=== PATIENT | male | born 2000 | race Caucasian/White ===

== ENCOUNTER 2025-02-25 06:36 | Inpatient (IN) | payer MEDICAID, SELFPAY ==
--- OUTSIDE RECORDS SUMMARY | 2013-12-06 19:00 | XMS_ITS | Continuity of Care Document ---
Author Organization [facility] Address [address] [place] [address] Phone Care Team Providers Care [employer] Manager Name Role Phone Unavailable Unavailable Unavailable Advance Directives Directive Yes / No Effective Date File Name No Information Encounters Encounter Description Practice Location Reason(s) For Visit Diagnoses Date Provider Providers Copied on Encounter [facility], [address], [place], [address], [place] tel:[phone] [facility] No Information Dec-0 6201 4 No Information Referring Provider: MJ LEE J, [address] [place], [address]. tel:[phone] Family History Family Member Type Diagnosis Age At Onset No Information Payers Payer name Insurance type Covered republican ID Authoriza tistra(s) [place] [employer] [id number] Social History Type Description Quantity Date Captured Comments Sex Male Smoking Status No Information Chief Complaint And Reason For Visit No Information History Of Present Illness Encounter Date Complaint History Of Prese nt Illness No Information Instructions Date Instruction Additional Infor mation No Information Assessments Type Assessment Date No Information
--- OUTSIDE RECORDS SUMMARY | 2017-10-23 09:30 | XMS_ITS | Continuity of Care Document ---
Author Organization [facility] Address [address] [id number] [address] Phone Care Team Providers Care Byproducts Operator Name Role Phone Levon ABIGAIL Checo Unavailable [...] Diagnoses Date Provider Providers Copied on Encounter [facility], [id number]- [place], [place], [address], [place] tel:[phone] [facility] Encounter for dental exam and cleaning w/o abnormal findings b2 0- 8 Levon Kessler. [address] [place], [address], [place]. tel:[phone] Referring Provider: Checo Nicholson, [address] [place], [address]. tel:[phone] [facility], [id number]- [place], [place], [address], [place] tel:[phone] [facility] Encounter for dental exam and cleaning w/o abnormal findings b-0 6 8 Nura Lee. [address] [place], [address], [place]. tel:[phone] Referring Provider: Rosa Vance, [address] [place], [address]. tel:[phone] [facility], [address] [id number]- [place], [place], [address], [place] tel:[phone] [facility] Encounter for dental exam and cleaning w/o abnormal findings b0 1 8 Levon Kessler. [address] [place], [address], [place]. tel:[phone] Referring Provider: Checo Nicholson, [address] [place], [address]. tel:[phone] [facility], [id number]- [place], [address], [place] tel:[phone] [facility] Encounter for dental exam and cleaning w/o abnormal findings 8 Nura Lee. [address] [place], [address], [place]. tel:[phone] Referring Provider: Rosa Vance, [address] [place], [address]. tel:[phone] [facility], [address] [id number]- [place], [address], [place] tel:[phone] [facility] Encounter for dental exam and cleaning w/o abnormal findings 7 Yazmin Zendejas. [address] [place], [address], [place]. tel:[phone] Referring Provider: Aashish Arce, [address] [place], [address]. tel:[phone] [facility], [id number]- [place], [place], [address], [place] tel:[phone] [facility] Encounter for dental exam and cleaning w/o abnormal findings 6 Yazmin Zendejas. [address] [place], [address], [place]. tel:[phone] Referring Provider: Aashish Arce, [address] [place], [address]. tel:[phone] [facility], [address] [id number]- [place], [place], [address], [place] tel:[phone] [facility] No Information 6 No Information Referring Provider: Charlotte Vance, [address] [place], [address]. tel:[phone] [facility], [address] [id number]- [facility], [place], [place], [address], [place] tel:[phone] [facility] Encounter for dental exam and cleaning w/o abnormal findings 5 Levon Kessler. [address] [place], [address], [place]. tel:[phone] Referring Provider: Charlotte Vance, [address] [place], [address]. tel:[phone] [facility], [id number]- [place], [place], [address], [place] tel:[phone] [facility] No Information 5 No Information [facility], [address] [id number]- [place], [place], [address], [place] tel:[phone] [facility] Dental examination 5 No Information [facility], [address] [id number]- [place], [place], [address], [place] tel:[phone] [facility] Dental examination 4 No Information [facility], [address] [id number]- [place], [place], [address], [place] tel:[phone] [facility] Dental examination Nov- 4 No Information [facility], [address] [id number]- [place], [place], [address], [place] tel:[phone] [facility] Dental examination 3 No Information [facility], [address] [id number]- [facility], [place], [place], [address], [place] tel:[phone] [facility] Dental examination Nov- 3 Nura Fairbanks. [address] [place], [address], [place]. tel:[phone] Referring Provider: Magdi Davis, [address] [place], [address]. tel:[phone] [facility], [address] [id number]- [place], [place], [address], tel:[phone] [facility] Dental examination 3 Nura [address]. [address] [place], [address], [place]. tel:[phone] Referring Provider: Magdi Davis, [address] [place], [address]. tel:[phone] EST-PROB FOC/STR FORWARD [facility], [id number], [address], tel:[phone] Family Medicine F1 No Information 0200 7 No Information NEW-EXP PROB FOC/STR FORWARD [facility], [address] [id number], [address], tel:[phone] Family Medicine F1 No Information 0200 6 No Information Family History Family Member Type Diagnosis Age At Onset Father Problem (finding) Alive and well Mother Problem (finding) Alive and well Payers Payer name Insurance type Covered constitution party ID Katt zafar(s) D [employer] CI [id number] Social History Type Description Quantity Date Captured [...]
[2025-02-25] VITALS (51 sets, daily range): BP systolic 107–164; BP diastolic 61–106; PULSE 87–120; RESP 16–38; TEMP 36.1–37.4; O2SAT 92–100; BMI 25.9
[2025-02-25 06:53] LABS: Glucose Point of Care > 600 mg/dL (70-110)
[2025-02-25 07:11] LABS: Arterial Blood Gas Hematocrit 49.3 % (42-52); Base Excess ABG -27.6 mmol/L (-2.0-2.0); Blood Gas Allen Test Pos; Blood Gas Operator Identificat CAK; Blood Gas Sample Site Radial, left; Blood Gas Sample Type Arterial; Carboxyhemoglobin 1.2 %THgb (0.4-20.1); HGB O2 Sat 97.6 % (95-100); Ionized Calcium Level - ABG 1.3 mmol/L (1.1-1.4); Methemoglobin 0.2 % (0.4-1.5); Oxygen Device ROOM AIR; PO2 FiO2 Ratio Arterial Blood 742; Potassium Level - ABG 6.3 mmol/L (3.5-5.0); Total Hemoglobin 16.1 g/dL (14-18)
[2025-02-25 07:12] LABS: ABG PCO2 < 9.6 mmHg (35-45); ABG PH Result 6.98 (7.35-7.45)
--- NOTE | 2025-02-25 07:19 | ED_ITS ---
HPI - Recheck/Abnormal Lab/Rx 2 General: Chief Complaint: Recheck/Abnormal Lab/Rx Stated Complaint: N/V Time Seen by Provider: 02/25/25 06:47 History of Present Illness: 24-year-old man with a history of type 1 diabetes who presents emergency room with hyperglycemia, nausea and vomiting. He says he ran out of his insulin a few days ago. He says he has not slept in a couple days. He has been dry heaving. He is Kussmaul breathing on presentation. No focal abdominal pain. No chest pain. No altered mental status at this time. He is able to answer questions appropriately when he is not dry heaving. Review of Systems 2 Narrative: Constitutional symptoms: Negative except as documented in HPI. Skin symptoms: Negative except as documented in HPI. Eye symptoms: Negative except as documented in HPI. ENMT symptoms: Negative except as documented in HPI. Respiratory symptoms: Negative except as documented in HPI. Cardiovascular symptoms: Negative except as documented in HPI. Gastrointestinal symptoms: Negative except as documented in HPI. Genitourinary symptoms: Negative except as documented in HPI. Musculoskeletal symptoms: Negative except as documented in HPI. Neurologic symptoms: Negative except as documented in HPI. Psychiatric symptoms: Negative except as documented in HPI. Endocrine symptoms: Negative except as documented in HPI. Physical Exam 2 Narrative: EXAM NARRATIVE: General: Alert, appears in moderate distress. Skin: Warm, dry. Head: Normocephalic, atraumatic. Neck: Supple, trachea midline. Eye: Extraocular movements are intact. Ears, nose, mouth and throat: Extremely dry oral mucosa Cardiovascular: Regular, Normal peripheral perfusion. Respiratory: Lungs are clear to auscultation, respirations are non-labored, breath sounds are equal, Symmetrical chest wall expansion. Gastrointestinal: Soft, Nontender, Non distended, actively dry heaving. Musculoskeletal: Normal ROM, no deformity. Neurological: Alert and oriented, No focal neurological deficit observed. Psychiatric: Cooperative, appropriate mood & affect. Course 2 Vital Signs: Vital signs: Vital Signs Temperature 97.0 F L 02/25/25 07:35 Pulse Rate 115 H 02/25/25 08:05 Respiratory Rate 36 H 02/25/25 08:05 Blood Pressure 164/96 02/25/25 08:05 Pulse Oximetry 100 02/25/25 08:05 Oxygen Delivery Me thod Room Air 02/25/25 07:35 MDM - Recheck/Abnormal Lab/Rx Medical Decision Making Medical decision making: Differential diagnosis for the patient with hyperglycemia would include but not be limited to and would be based on the above HPI review of systems and physical exam: DKA. Dehydration. Renal failure. Concern for electrolyte abnormalities. Concern for underlying infection that might result in hyperglycemia. Medical non-compliance. Orders placed to evaluate differential diagnosis of the patient with hyperglycemia are based on the above differential, HPI and physical exam. AB.98/9.6/156 with a bicarb of 2. 2 A of bicarb were ordered at this time along with an insulin drip and an additional liter of fluids. Lab Review: Laboratory results were reviewed and interpreted by myself the emergency room physician. Leukocytosis with a white count of 31,000. No anemia. Patient does have renal failure with a BUN/creatinine of 29 and 1.7. No previous lab values but given his age this is likely acute renal insufficiency. Potassium is mildly elevated at 6.5. Sodium is low at 121 but this is secondary to high glucose. Of most concern is a bicarb of 4. Ketone positive. EKG: Time 8:26 AM. Rate 111. Sinus tachycardia, No ST-T changes, no ectopy, normal MD & QRS intervals, This was reviewed and interpreted by myself the ER physician at 8:30 AM Sodium Correction for Hyperglycemia from [employer] on 02/25/2025 All calculations should be rechecked by clinician prior to use RESULT SUMMARY: 134 mEq/L Corrected Sodium (Hanks, 1973) 140 mEq/L Corrected Sodium (Meryl, 1999) INPUTS: Sodium ?> 121 mEq/L Glucose ?> 891 mg/dL I reviewed the patient's medical record. Reexamination: Patient continues to have Kussmaul breathing. No altered mental status. Tachypneic. Chest x-ray: No acute process. No infiltrate. No pneumothorax. This was reviewed and interpreted by myself the emergency room physician. I also reviewed the radiology report. Repeat ABG: Slight improvement with a pH of 7.056 and a PCO2 of 14 with a bicarb of 4. Consultation: I spoke with Dr. Granados who is on-call for the hospitalist service who agrees to admission to the ICU. Assessment and plan: Diabetic ketoacidosis Acute renal failure Dehydration ?3 L normal saline. IV insulin drip. 2 Amps sodium bicarbonate. Has received a total of 16 mg of Zofran. -I discussed the patient with the hospitalist on-call who is admitting the patient. - Discussed findings and plan with patient. Answered any questions. - All laboratory values were reviewed and interpreted personally by myself, the ER physician - All imaging was reviewed and interpreted personally by myself, the ER physician. - Evaluation and treatment of this problem were appropriate in the emergency setting Critical care -I spent a total of >75 minutes of critical care time managing the patient, independent of any other practitioner. -The time involved in the performance of separately reportable procedures was not counted towards critical care time. Lab Data 02/25/25 07:10 02/25/25 07:10 Radiology Impressions Chest X-Ray 02/25/25 07:50 IMPRESSION: 1. Negative chest. Laboratory Results WBC 31.35 10^3/uL (3.29-11.43) H* 02/25/25 07:10 RBC 5.00 10^6/uL (3.85-5.65) 02/25/25 07:10 Hgb 15.60 g/dL (11.27-16.99) 02/25/25 07:10 Hct 46.9 % (37-53) 02/25/25 07:10 MCV 93.8 fl (82-101) 02/25/25 07:10 MCH 31.2 pg (27-33) 02/25/25 07:10 MCHC 33.3 g/dL (30-55) 02/25/25 07:10 RDW 12.8 % (12.1-15.1) 02/25/25 07:10 Plt Count 496 10^3/cmm (157-399) H 02/25/25 07:10 MPV 10.0 fL (7.4-10.4) 02/25/25 07:10 Neut % (Auto) 82.0 % 02/25/25 07:10 Lymph % (Auto) 9.4 % 02/25/25 07:10 [place] % (Auto) 5.5 % 02/25/25 07:10 Eos % (Auto) 0.0 % 02/25/25 07:10 Baso % (Auto) 0.4 % 02/25/25 07:10 Neut # (Auto) 25.70 10^3/uL (1.8-7.7) H 02/25/25 07:10 Lymph # (Auto) 3.0 10^3/uL (0.8-4.8) 02/25/25 07:10 [place] # (Auto) 1.7 10^3/uL (0.2-0.9) H 02/25/25 07:10 Eos # (Auto) 0.0 10^3/uL (0.0-0.8) 02/25/25 07:10 Baso # (Auto) 0.1 10^3/uL (0.0-0.1) 02/25/25 07:10 Nucleated RBC % (auto) 0 % 02/25/25 07:10 Nucleated RBCs # 0.0 /100WBC 02/25/25 07:10 Specimen Type Arterial 02/25/25 07:00 Sample Site Radial, left 02/25/25 07:00 ABG pH 6.98 (7.35-7.45) L* 02/25/25 07:00 ABG pCO2 < 9.6 mmHg (35-45) L* 02/25/25 07:00 ABG pO2 156.0 mmHg (80.0-100.0) H 02/25/25 07:00 ABG PO2/FiO2 Ratio 742 02/25/25 07:00 ABG HCO3 2.0 mmol/L (22-26) L 02/25/25 07:00 ABG O2 Saturation 99.0 02/25/25 07:00 ABG Base Excess -27.6 mmol/L (-2.0-2.0) L 02/25/25 07:00 Gerardo Test Pos 02/25/25 07:00 A-a O2 Gradient Not Reportable 02/25/25 07:00 Hematocrit 49.3 % (42-52) 02/25/25 07:00 Hgb O2 Saturation 97.6 % (95-100) 02/25/25 07:00 Carboxyhemoglobin 1.2 %THgb (0.4-20.1) 02/25/25 07:00 Methemoglobin 0.2 % (0.4-1.5) L 02/25/25 07:00 Total Hemoglobin 16.1 g/dL (14-18) 02/25/25 07:00 Sodium 122.0 mmol/L (131-143) L 02/25/25 07:00 Potassium 6.3 mmol/L (3.5-5.0) H 02/25/25 07:00 Glucose 862.0 mg/dL (70-115) H 02/25/25 07:00 Ionized Calcium 1.3 mmol/L (1.1-1.4) 02/25/25 07:00 O2 Delivery Device Room air 02/25/25 07:00 FiO2 21.0 % 02/25/25 07:00 Flavorings Compounder ID Cak 02/25/25 07:00 Sodium 121 mmol/L (136-145) L 02/25/25 07:10 Potassium 6.5 mmol/L (3.5-5.1) H* 02/25/25 07:10 Chloride 77 mmol/L (98-107) L 02/25/25 07:10 Carbon Dioxide 4 mmol/L (22-29) L* 02/25/25 07:10 Anion Gap 46.5 (5-19) H 02/25/25 07:10 BUN 29 mg/dL (6-20) H 02/25/25 07:10 Creatinine 1.7 mg/dL (0.7-1.2) H 02/25/25 07:10 GFR Calculation 49.4 mL/min (90-130) L 02/25/25 07:10 Glucose 891 mg/dL (65-115) H* 02/25/25 07:10 POC Glucose > 600 mg/dL (70-110) H* 02/25/25 06:46 Calculated Osmolality 302 mOsm/kg (285-295) H 02/25/25 07:10 Lactic Acid 5.4 mmol/L (0.5-2.2) H* 02/25/25 07:10 Calcium 9.4 mg/dL (8.5-10.5) 02/25/25 07:10 Total Bilirubin 0.4 mg/dL (0.15-1.2) 02/25/25 07:10 AST 26 U/L (0-40) 02/25/25 07:10 ALT 44 U/L (0-41) H 02/25/25 07:10 Alkaline Phosphatase 164 U/L (40-130) H 02/25/25 07:10 C-Reactive Protein 7.2 mg/L (0.0-4.9) H 02/25/25 07:10 Total Protein 7.9 g/dL (6.6-8.7) 02/25/25 07:10 Albumin 4.4 g/dL (3.5-5.2) 02/25/25 07:10 Globulin 3.5 g/dL (1.3-4.6) 02/25/25 07:10 Lipase 26 U/L (13-60) 02/25/25 07:10 Serum Ketones Positive (Negative) H 02/25/25 07:10 All radiology interpretation(s) finalized by discharge Discharge Plan Discharge Patient Disposition: Admitted As Inpatient Admit Provider: Carlos Granados Clinical Impression: Diabetic ketoacidosis, Acute renal failure, Dehydration Condition: Stable Coding Level of Care Code ED Knit Goods Washer for Kimberlee Monsalve
[2025-02-25 07:20] LABS: Basophils # 0.1 10^3/uL (0.0-0.1); Basophils % 0.4 %; Hematocrit 46.9 % (37-53); Lymphocytes % 9.4 %; Mean Corpuscular HGB Conc 33.3 g/dL (30-55); Mean Corpuscular Hemoglobin 31.2 pg (27-33); Mean Corpuscular Volume 93.8 fl (82-101); Monocytes # 1.7 10^3/uL (0.2-0.9); Monocytes % 5.5 %; Nucleated Red Blood Cells % 0 %; Platelet Count 496 10^3/cmm (157-399); Red Cell Distribution Width 12.8 % (12.1-15.1)
[2025-02-25 07:25] LABS: White Blood Count 31.35 10^3/uL (3.29-11.43)
--- NOTE | 2025-02-25 07:27 | ECG_ITS ---
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 Measurements Intervals [place] Rate: 111 P: 42 SD: 96 QRS: -26 QRSD: 94 T: 60 QT: 319 QTc: 434 Interpretive Statements SINUS TACHYCARDIA WITH SHORT SD INTERVAL BORDERLINE LEFT AXIS DEVIATION [QRS AXIS < -20] No previous ECG available for comparison Electronically Signed On 03-05-2025 09:28:43 CDT by Margarito Vogel M.D. [email or web address]"
[2025-02-25] MEDS: sodium chloride 0.9% 1,000 ML 999 ML IV ×3 (07:29→08:06)
[2025-02-25] MEDS: sodium bicarbonate 8.4% 1 mEq/mL 50mL Syr 100 MEQ IVP (07:29)
[2025-02-25] MEDS: ondansetron 2 mg/ML SDV 2 mL 8 MG IVP ×2 (07:29→08:22)
[2025-02-25 07:36] LABS: Alanine Aminotransferase 44 U/L (0-41); Albumin Level 4.4 g/dL (3.5-5.2); Alkaline Phosphatase 164 U/L (40-130); Anion Gap 46.5 (5-19); Aspartate Amino Transferase 26 U/L (0-40); Blood Urea Nitrogen 29 mg/dL (6-20); C Reactive Protein 7.2 mg/L (0.0-4.9); Calcium 9.4 mg/dL (8.5-10.5); Chloride 77 mmol/L (98-107); Globulin 3.5 g/dL (1.3-4.6); Glomerular Filtration Rate 49.4 mL/min (90-130); Lipase 26 U/L (13-60); Sodium 121 mmol/L (136-145); Total Bilirubin 0.4 mg/dL (0.15-1.2); Total Protein 7.9 g/dL (6.6-8.7)
[2025-02-25 07:38] LABS: Ketone (Acetest) Serum Positive (Negative)
[2025-02-25 07:42] LABS: Carbon Dioxide 4 mmol/L (22-29); Lactic Sepsis W/Reflex 5.4 mmol/L (0.5-2.2); Potassium 6.5 mmol/L (3.5-5.1)
[2025-02-25 07:45] LABS: Osmolality Calculated 302 mOsm/kg (285-295)
[2025-02-25] MEDS: INSULIN REGULAR IN 0.9 % NACL 100 UNIT/100 ML BAG 7.5 UNIT IV (07:48)
--- NOTE | 2025-02-25 07:50 | XR_ITS ---
WS: [id number] Exam: XR chest 1V portable [id number] Date/Time of Exam: 02/25/2025 7:50 AM Reason For Exam: dka No previous exams. Lungs are fully inflated and clear. Heart size is normal. No pleural effusions. The mediastinum and bony thorax are intact. Several old RIGHT rib fractures. XR/XR chest 1V portable [id number] IMPRESSION: 1. Negative chest.
[2025-02-25 07:53] LABS: Glucose 891 mg/dL (65-115)
[2025-02-25 08:15] LABS: Glucose Point of Care > 600 mg/dL (70-110)
[2025-02-25] MEDS: acetaminophen 1,000 MG/100 ML PIGGYBACK 400 MG IV (08:22)
[2025-02-25 08:56] LABS: Alveolar-Arterial Oxygen Gradi 2.1 mmHg (5-10); Arterial Blood Gas Hematocrit 46.5 % (42-52); Base Excess ABG -24.4 mmol/L (-2.0-2.0); Blood Gas Allen Test Pos; Blood Gas Operator Identificat MONRO; Blood Gas Sample Site Radial, right; Blood Gas Sample Type Arterial; Carboxyhemoglobin 1.2 %THgb (0.4-20.1); HGB O2 Sat 95.7 % (95-100); Ionized Calcium Level - ABG 1.2 mmol/L (1.1-1.4); Methemoglobin 1.3 % (0.4-1.5); Oxygen Device ROOM AIR; Oxygen Saturation ABG 98.2; PO2 FiO2 Ratio Arterial Blood 538; Potassium Level - ABG 4.4 mmol/L (3.5-5.0); Total Hemoglobin 15.2 g/dL (14-18)
[2025-02-25 08:57] LABS: ABG PCO2 14.2 mmHg (35-45); ABG PH Result 7.06 (7.35-7.45)
[2025-02-25 09:06] LABS: Reflex Lactate Order REFLEX LACTIC ORDERD
[2025-02-25 09:09] LABS: Glucose Point of Care > 600 mg/dL (70-110)
--- NOTE | 2025-02-25 09:24 | P.HP_ITS ---
Providers/Chief Complaint 2 Admitting Physician: Carlos Granados Chief Complaint: N/V History of Present Illness Tim Das is a 24 year old male Review of Systems 2 Const: Reports: change in appetite and malaise; Denies: fever(s), chills or body aches Eyes: Reports: blurry vision ENMT: Denies: throat pain Card: Denies: chest pain, edema, pre-syncope or dyspnea on exertion Resp: Reports: other (Tachypnea); Denies: dyspnea, productive cough, change in phlegm color or hemoptysis GI: Reports: nausea and other (Dry heaving); Denies: abdominal pain, diarrhea, constipation, hematochezia or melena : Denies: flank pain, difficulty urinating, urinary frequency or hematuria Musc: Denies: back pain, joint swelling or joint redness Skin/Breast: Denies: rash or new lesions Neuro: Denies: headache(s) or confusion Medications/Allergies Home Medications ?Medication ?Instructions ?Recorded ?Confirmed ?Last Taken ?Type ibuprofen 200 mg tablet (Advil) 800 mg PO Q6H PRN Feve r Or Pain 02/25/25 02/25/25 02/22/25 History insulin aspart U-100 100 unit/mL 20 unit SUBCUT BEDTIM E 02/25/25 02/25/25 02/23/25 History subcutaneous solution insulin glargine 100 unit/mL See Rx Instructions .Rout e .COMPLEX 02/25/25 02/25/25 02/23/25 History subcutaneous solution PFSH Acute 2 PFSH: Medical History Diabetes type 1 Surgical History History of appendectomy Social History Smoking and tobacco/nicotine status: current every day tobacco/nicotine user Alcohol intake: never Substance/Drug Use: never Vitals/I&O/Wt Last Vital Signs Temp 97.0 F L 02/25/25 07:35 Pulse 115 H 02/25/25 08:05 Resp 36 H 02/25/25 08:05 BP 164/96 02/25/25 08:05 Pulse Ox 100 02/25/25 08:05 O2 Del Method Room Air 02/25/25 07:35 Weight last 48 hrs Weight 74.843 kg Physical Exam 2 Const: COMMON NORMALS: patient oriented x3 and alert GENERAL APPEARANCE: c ooperative ORIENTATION/CONSCIOUSNESS: Yes awake HENMT: OTHER: Dry MM Neck/C-Spine: COMMON NORMALS: no JVD Resp: COMMON NORMALS: clear to auscultation bilaterally EFFORT & INSPECTION: Yes tachypneic AUSCULTATION: clear to auscultation bilaterally Cardio: COMMON NORMALS: no JVD, regular rhythm, S1 normal heart sound present, S2 normal heart sound present and No murmurs present (Cardio) RHYTHM: regular rhythm HEART SOUNDS: S1 normal heart sound present and S2 normal heart sound present GI: COMMON NORMALS: Normal to inspection, nondistended, normoactive bowel sounds present, Soft to palpation and non-tender PALPATION: Yes Soft to palpation Extremity: COMMON NORMALS: no joint enlargement and no pedal edema Neuro: COMMON NORMALS: patient oriented x3 and moves all extremities S ENSORIUM/ORIENTATION: Yes alert Skin: COMMON NORMALS: no rashes or lesions noted GENERAL SKIN EXAM: no rashes or lesions noted Data 02/25/25 07:10 02/25/25 07:10 Micro: Microbiology 02/25/25 07:57 Blood Culture - Preliminary Blood SPECIMEN COLLECTED A&P Assessment and plan (1) Diabetic ketoacidosis: Ran out of insulin several days ago. Normally takes 20 units long acting and short acting SSI three times daily up to 80 units total. Has had DKA in the past. In the ED with dehydration, tachycardic, tachypnea, metabolic acidosis, reviewed vitals, CBC, ABG, CMP, lipase, serum ketones, chest x-ray, EKG, interpretation sinus tachycardia, ED provider note, discussed with ED provider. He received fluid boluses, started on insulin drip. Monitor POC glucose, monitor for risk of hypoglycemia, worsening hyperglycemia, acidosis, dehydration, fluid overload. Continue insulin drip, reassess chemistry, continue IV hydration with normal saline 250 mL/h. Monitor telemetry with risk arrhythmia. Zofran as needed for nausea. PPI prophylaxis with Protonix. DVT prophylaxis with Lovenox. As per discussion with him n.p.o. for now, sips chips and meds, he does state he is thirsty and wants to drink water. Discussed with him precautions. He will let us know once he is feeling better to advance to clear liquids. (2) Diabetes type 1: Has run out of insulin. Normally takes about 20 units of Basaglar and short acting insulin through the day. He had moved down here from [place]. Will need refill on insulin at discharge. Will need to reestablish with a primary provider and may be able to follow-up with endocrinology in [facility] as well which she states he will be trying to. (3) Dehydration: IV hydration as above. (4) WILLIAM (acute kidney injury): Reviewed chemistry, noted BUN 29, creatinine 1.7. Discussed with him. Potassium was 6.5 but with hyperglycemia, metabolic anion gap acidosis. Dehydrated. Possible prerenal WILLIAM, although he states that he has had issues with his renal function in the past and there may be a component of CKD. Monitor intake and output. Follow-up chemistry. Plan Headache: Received Tylenol. States in the past has been given tramadol. Would avoid NSAIDs due to WILLIAM versus WILLIAM on CKD. Without nuchal rigidity. Photosensitivity. Afebrile. Leukocytosis: With hemoconcentration, dehydration, without evidence of active infection at this time. DKA suspected triggered due to running out of insulin as he states has happened in the past. Reviewed chest x-ray. He denies other symptoms of infection on review of systems. Smoking addiction: Discussed smoke cessation with him for 3 and half minutes, he has been trying to quit. Has been cutting down. He is agreeable for nicotine replacement while in the hospital. Requested nicotine patch, nicotine lozenges. In case he could not make his own decisions he names Huong Moraes as a surrogate decision-maker. PDMP PDMP Reviewed: Not Reviewed Attestations 2 Medical Necessity Statement*: Admission over 2 midnights anticipated for assessment management of DKA, with WILLIAM, dehydration. Coding Level of Care Code Critical Care >/= 30 minutes Critical care time (in minutes): 40 The high probability of a clinically significant, sudden or life threatening deterioration, as referenced in this documentation, required my full and direct attention, intervention and personal management. The critical care time shown is in addition to time spent performing any reported separately billable procedures and includes the following: [x] Data and vital sign review and interpretation [x ] Patient assessment, examination and intervention [x] Medication orders and management [x] Patient/Family updates as able [x] Care Coordination and Documentation. Diagnoses Diabetic ketoacidosis E11.10 Diabetes type 1 E10.9 Dehydration E86.0 WILLIAM (acute kidney injury) N17.9
--- NOTE | 2025-02-25 09:34 | PC.NURSE ---
Notified Dr. Granados of patient's 0900 blood sugar reading of HI , let him know we would be giving a bolus of insulin and increasing his insulin drip.
--- NOTE | 2025-02-25 09:36 | PC.NURSE ---
0900 blood sugar check HI . Per protocol gave a bolus of 3.75 units. Increased insulin drip to 16.5 u/hr. 2 nurse verification done by myself and Ema Parada RN of insulin bolus and drip change.
[2025-02-25 10:37] LABS: Glucose Point of Care 412 mg/dL (70-110)
[2025-02-25] MEDS: TRAMadol 50 mg Tablet PO ×2 (10:47→20:31)
[2025-02-25] MEDS: nicotine 14 mg Patch 1 PATCH TRANSDERMA (10:47)
[2025-02-25 11:17] LABS: Lactic Acid level (Lactate) 4.9 mmol/L (0.5-2.2)
[2025-02-25 11:42] LABS: Glucose Point of Care 315 mg/dL (70-110)
[2025-02-25] MEDS: sodium chloride 0.9% 250 ML IV (12:32)
[2025-02-25 12:35] LABS: Glucose Point of Care 200 mg/dL (70-110)
[2025-02-25 13:27] LABS: Glucose Point of Care 139 mg/dL (70-110)
[2025-02-25] MEDS: dextrose 5%-sod chloride 0.45% 1,000 ML 250 ML IV ×3 (13:46→22:58)
[2025-02-25] MEDS: pantoprazole 40 mg SDV IVP (14:22)
[2025-02-25] MEDS: enoxaparin 40 mg/0.4 mL Syringe SUBCUT (14:22)
[2025-02-25 14:30] LABS: Glucose Point of Care 197 mg/dL (70-110)
[2025-02-25 14:38] LABS: Bilirubin Urine Negative (Negative); Blood Urine 2+ (Negative); Glucose Urine UA 2+ (Normal); Ketones Urine 4+ (Negative); Leukocyte Esterase Urine Negative (Negative); Nitrate Urine Negative (Negative); Protein Urine 2+ (Negative); Specific Gravity, Urine 1.029 (1.005-1.030); Urine Appearance Clear (CLEAR); Urine Color Yellow (Yellow)
[2025-02-25 14:43] LABS: Bacteria Urine None Seen /hpf; RBC Urine 0-2 /hpf (0-2); Squamous Epithelial Cell Urine 0-5 /hpf (0-5); WBC Urine 0-5 /hpf (0-5)
--- NOTE | 2025-02-25 14:44 | CT_ITS ---
WS: [id number] CT HEAD NONCONTRAST HISTORY: severe headache TECHNIQUE: Contiguous axial imaging performed through the brain. Bone and soft tissue windows. Sagittal and coronal reformats reviewed. All CT scans at [facility] use at least one of these dose optimization techniques: automated exposure control; mA and/or kV adjustment per patient size (includes targeted exams where dose is matched to clinical indication); or iterative reconstruction. DLP: 2210.18 mGy.cm COMPARISON: None available. No acute intracranial hemorrhage, midline shift or mass effect. No atrophy or prior infarcts or herniation. Ventricles: Normal size with no hydrocephalus. Paranasal sinuses: As visualized are clear. Mastoid air cells: Well pneumatized. Calvarium and scalp: Skull is intact with no soft tissue edema or swelling. CT/CT head wo con* [id number] IMPRESSION: Negative head CT.
[2025-02-25 14:45] LABS: Anion Gap 26.6 (5-19); Blood Urea Nitrogen 22 mg/dL (6-20); Calcium 8.6 mg/dL (8.5-10.5); Carbon Dioxide 12 mmol/L (22-29); Chloride 103 mmol/L (98-107); Creatinine Clr Calc Pharmacy 107.7689; Glomerular Filtration Rate 81.6 mL/min (90-130); Glucose 183 mg/dL (65-115); Osmolality Calculated 292 mOsm/kg (285-295); Potassium 4.6 mmol/L (3.5-5.1); Sodium 137 mmol/L (136-145)
[2025-02-25 14:46] LABS: Amphetamines Screen Urine Negative (Negative); Barbiturates Screen Urine Negative (Negative); Benzodiazepines Screen Urine Negative (Negative); Cocaine Screen Urine Negative (Negative); Opiate Screen Urine Negative (Negative); PCP Screen Urine Negative (Negative); THC Screen Urine Positive (Negative)
[2025-02-25] MEDS: INSULIN REGULAR IN 0.9 % NACL 100 UNIT/100 ML BAG IV (14:50)
--- NOTE | 2025-02-25 14:57 | PC.NURSE ---
Patient is reporting headache at 10/10 pain. One of the worst headaches he has ever had. Patient's face was really flushed. Because of the drop in blood sugar from the ER DR. Granados was contacted. He ordered to get a head CT w/o contrast stat.
[2025-02-25 15:17] LABS: Glucose Point of Care 253 mg/dL (70-110)
--- NOTE | 2025-02-25 15:19 | PC.NURSE ---
Patient wanted his wallet to be sent home with their family member Huong Moraes. Wallet was given to Huong Moraes to take home.
[2025-02-25] MEDS: ondansetron 2 mg/ML SDV 2 mL 4 MG IVP (15:24)
[2025-02-25] MEDS: acetaminophen 325 mg Tablet 650 MG PO ×2 (15:29→21:48)
[2025-02-25 16:18] LABS: Glucose Point of Care 305 mg/dL (70-110)
[2025-02-25 17:09] LABS: Glucose Point of Care 259 mg/dL (70-110)
[2025-02-25 18:11] LABS: Glucose Point of Care 220 mg/dL (70-110)
[2025-02-25 18:31] LABS: Anion Gap 23.4 (5-19); Blood Urea Nitrogen 18 mg/dL (6-20); Calcium 8.5 mg/dL (8.5-10.5); Carbon Dioxide 12 mmol/L (22-29); Chloride 104 mmol/L (98-107); Creatinine Clr Calc Pharmacy 107.7689; Glomerular Filtration Rate 81.6 mL/min (90-130); Glucose 200 mg/dL (65-115); Osmolality Calculated 288 mOsm/kg (285-295); Potassium 4.4 mmol/L (3.5-5.1); Sodium 135 mmol/L (136-145)
[2025-02-25] MEDS: morphine 4 mg/mL SDV 1 mL 2 MG IVP (19:12)
[2025-02-25 19:13] LABS: Glucose Point of Care 256 mg/dL (70-110)
[2025-02-25 20:10] LABS: Glucose Point of Care 212 mg/dL (70-110)
[2025-02-25 21:28] LABS: Glucose Point of Care 185 mg/dL (70-110)
[2025-02-25] MEDS: LORazepam 1 mg Tablet PO (21:45)
[2025-02-25 22:05] LABS: Glucose Point of Care 253 mg/dL (70-110)
[2025-02-25 23:04] LABS: Glucose Point of Care 291 mg/dL (70-110)
[2025-02-26] VITALS (27 sets, daily range): BP systolic 121–160; BP diastolic 77–113; PULSE 72–101; RESP 15–39; TEMP 36.7–37.3; O2SAT 96–100
[2025-02-26 00:11] LABS: Glucose Point of Care 251 mg/dL (70-110)
[2025-02-26 01:19] LABS: Glucose Point of Care 205 mg/dL (70-110)
[2025-02-26 02:13] LABS: Glucose Point of Care 201 mg/dL (70-110)
[2025-02-26 03:12] LABS: Glucose Point of Care 209 mg/dL (70-110)
[2025-02-26] MEDS: dextrose 5%-sod chloride 0.45% 1,000 ML 250 ML IV ×4 (03:13→23:31)
[2025-02-26 04:05] LABS: Alanine Aminotransferase 29 U/L (0-41); Albumin Level 3.3 g/dL (3.5-5.2); Alkaline Phosphatase 98 U/L (40-130); Aspartate Amino Transferase 23 U/L (0-40); Blood Urea Nitrogen 11 mg/dL (6-20); Calcium 8.6 mg/dL (8.5-10.5); Carbon Dioxide 17 mmol/L (22-29); Chloride 103 mmol/L (98-107); Globulin 2.5 g/dL (1.3-4.6); Glucose 188 mg/dL (65-115); Osmolality Calculated 280 mOsm/kg (285-295); Sodium 133 mmol/L (136-145); Total Bilirubin 0.5 mg/dL (0.15-1.2); Total Protein 5.8 g/dL (6.6-8.7)
[2025-02-26 04:06] LABS: Phosphorus 0.7 mg/dL (2.5-4.5)
[2025-02-26 04:08] LABS: Glucose Point of Care 200 mg/dL (70-110)
[2025-02-26] MEDS: morphine 4 mg/mL SDV 1 mL 2 MG IVP ×3 (04:26→21:12)
[2025-02-26] MEDS: ondansetron 2 mg/ML SDV 2 mL 4 MG IVP (04:27)
[2025-02-26] MEDS: potassium phosphate (mEq K) 40 MEQ in sodium chloride 0.9% (100 ml) 100 ML 27.25 MEQ IV (04:31)
[2025-02-26 05:07] LABS: Glucose Point of Care 255 mg/dL (70-110)
[2025-02-26 05:23] LABS: Basophils % 0.1 %; Eosinophils % 0.1 %; Hematocrit 36.1 % (37-53); Lymphocytes # 1.7 10^3/uL (0.8-4.8); Lymphocytes % 11.5 %; Mean Corpuscular HGB Conc 35.5 g/dL (30-55); Mean Corpuscular Hemoglobin 30.8 pg (27-33); Mean Corpuscular Volume 86.8 fl (82-101); Mean Platelet Volume 9.3 fL (7.4-10.4); Monocytes # 1.1 10^3/uL (0.2-0.9); Monocytes % 7.5 %; Neutrophils # 11.82 10^3/uL (1.8-7.7); Neutrophils % 80.3 %; Nucleated Red Blood Cells % 0 %; Platelet Count 232 10^3/cmm (157-399); Red Blood Count 4.16 10^6/uL (3.85-5.65); Red Cell Distribution Width 12.8 % (12.1-15.1); White Blood Count 14.71 10^3/uL (3.29-11.43)
[2025-02-26 06:05] LABS: Glucose Point of Care 272 mg/dL (70-110)
[2025-02-26] MEDS: TRAMadol 50 mg Tablet PO ×3 (07:12→22:36)
[2025-02-26 07:20] LABS: Glucose Point of Care 260 mg/dL (70-110)
[2025-02-26] MEDS: nicotine 14 mg Patch 1 PATCH TRANSDERMA (08:14)
[2025-02-26 08:30] LABS: Glucose Point of Care 178 mg/dL (70-110)
[2025-02-26 09:06] LABS: Anion Gap 19.1 (5-19); Blood Urea Nitrogen 9 mg/dL (6-20); Calcium 8.7 mg/dL (8.5-10.5); Carbon Dioxide 17 mmol/L (22-29); Chloride 104 mmol/L (98-107); Creatinine Clr Calc Pharmacy 132.0179; Glomerular Filtration Rate 102.8 mL/min (90-130); Glucose 181 mg/dL (65-115); Osmolality Calculated 285 mOsm/kg (285-295); Potassium 4.1 mmol/L (3.5-5.1); Sodium 136 mmol/L (136-145)
[2025-02-26] MEDS: acetaminophen 325 mg Tablet 650 MG PO ×2 (09:07→17:41)
[2025-02-26 09:10] LABS: Glucose Point of Care 194 mg/dL (70-110)
[2025-02-26 10:01] LABS: Glucose Point of Care 121 mg/dL (70-110)
--- NOTE | 2025-02-26 10:10 | P.PN_ITS ---
Subjective 2 Subjective: He feels he is improving. Headache is doing better. He would like to trial to advance to clear liquids. Vitals/I&O/Wt Last Vital Signs Temp 98.0 F 02/26/25 07:00 Pulse 88 02/26/25 09:00 Resp 19 H 02/26/25 09:00 BP 132/97 02/26/25 09:00 Pulse Ox 100 02/26/25 09:00 O2 Del Method Room Air 02/26/25 09:00 02/25/25 02/26/25 02/26/25 22:59 06:59 14:59 Intake Total 2127.366 / 5570.233 1022.217 / 6592.559 256.6002 / 122.2739 Output Total 900 / 900 900 / 900 Balance 2127.366 / 5570.233 122.217 / 5692.450 -777.7261 / -777.7261 Weight last 48 hrs Weight 79.923 kg Weight 79.5 kg Weight 74.843 kg Physical Exam 2 Const: COMMON NORMALS: patient oriented x3 GENERAL APPEARANCE: cooperative OTHER: Wakes up to voice and shoulder touch. HENMT: OTHER: Dry MM Neck/C-Spine: COMMON NORMALS: no JVD Resp: COMMON NORMALS: clear to auscultation bilaterally EFFORT & INSPECTION: Yes tachypneic AUSCULTATION: clear to auscultation bilaterally Cardio: COMMON NORMALS: no JVD, regular rhythm, S1 normal heart sound present, S2 normal heart sound present and No murmurs present (Cardio) RHYTHM: regular rhythm HEART SOUNDS: S1 normal heart sound present and S2 normal heart sound present GI: COMMON NORMALS: Normal to inspection, nondistended, normoactive bowel sounds present, Soft to palpation and non-tender PALPATION: Yes Soft to palpation Extremity: COMMON NORMALS: no joint enlargement and no pedal edema Neuro: COMMON NORMALS: patient oriented x3 and moves all extremities Skin: COMMON NORMALS: no rashes or lesions noted GENERAL SKIN EXAM: no rashes or lesions noted Data 02/26/25 04:55 02/26/25 08:43 Micro: Microbiology 02/25/25 07:57 Blood Culture - Preliminary Blood NEGATIVE TO DATE 02/25/25 10:50 Blood Culture - Preliminary Blood SPECIMEN COLLECTED A&P Assessment and plan (1) Diabetic ketoacidosis: Gradually improving. Glucose improving. Reviewed vitals, CBC, CMP, UA, UDS. Hypophosphatemia this morning for which received replacement per protocol. Anion gap improving, down to 17 this morning, bicarb 17. BUN, creatinine normal. Continue IV hydration, continue IV insulin drip. Monitor for risk of hypoglycemia, monitor for risk of fluid overload. He would like to trial some clear liquids, requested. Continue to reassess chemistry, Phos, mag. Discussed with nursing. Monitor telemetry with risk arrhythmia. Zofran as needed for nausea. PPI prophylaxis with Protonix. DVT prophylaxis with Lovenox. (2) Diabetes type 1: Has run out of insulin. Normally takes about 20 units of Basaglar and short acting insulin through the day. He had moved down here from [place]. Will need refill on insulin at discharge. Will need to reestablish with a primary provider and may be able to follow-up [facility] which she states he will be trying to. Discussed with vocational case manager. (3) Dehydration: IV hydration as above. (4) WILLIAM (acute kidney injury): Resolved with hydration. Likely prerenal. Reviewed BUN, creatinine, intake output. Electrolytes. Reassess chemistry Plan Headache: Plus slight worsening headache, CT of the head obtained, reviewed, unremarkable. Given morphine. Headache improving. Possible symptoms with glucose coming down in case of protracted hyperglycemia preadmission. States in the past has been given tramadol. Would avoid NSAIDs due to WILLIAM versus WILLIAM on CKD. Without nuchal rigidity. Photosensitivity. Afebrile. Leukocytosis: With hemoconcentration, dehydration, without evidence of active infection at this time. DKA suspected triggered due to running out of insulin as he states has happened in the past. Reviewed chest x-ray. He denies other symptoms of infection on review of systems. Smoking addiction: Continue to encourage cessation. PDMP PDMP Reviewed: Not Reviewed Attestations 2 Medical Necessity Statement*: Continue admission for assessment management of DKA. Coding Level of Care Code Critical Care >/= 30 minutes Critical care time (in minutes): 35 The high probability of a clinically significant, sudden or life threatening deterioration, as referenced in this documentation, required my full and direct attention, intervention and personal management. The critical care time shown is in addition to time spent performing any reported separately billable procedures and includes the following: [x] Data and vital sign review and interpretation [x ] Patient assessment, examination and intervention [x] Medication orders and management [x] Patient/Family updates as able [x] Care Coordination and Documentation. Diagnoses Diabetic ketoacidosis E11.10 Diabetes type 1 E10.9 Dehydration E86.0 WILLIAM (acute kidney injury) N17.9
[2025-02-26 11:04] LABS: Glucose Point of Care 184 mg/dL (70-110)
[2025-02-26 12:06] LABS: Glucose Point of Care 243 mg/dL (70-110)
[2025-02-26 12:51] LABS: Alanine Aminotransferase 25 U/L (0-41); Albumin Level 3.3 g/dL (3.5-5.2); Alkaline Phosphatase 101 U/L (40-130); Anion Gap 18.1 (5-19); Aspartate Amino Transferase 18 U/L (0-40); Blood Urea Nitrogen 9 mg/dL (6-20); Calcium 8.5 mg/dL (8.5-10.5); Carbon Dioxide 18 mmol/L (22-29); Chloride 102 mmol/L (98-107); Creatinine Clr Calc Pharmacy 148.5201; Globulin 2.3 g/dL (1.3-4.6); Glomerular Filtration Rate 117.8 mL/min (90-130); Glucose 243 mg/dL (65-115); Osmolality Calculated 285 mOsm/kg (285-295); Potassium 4.1 mmol/L (3.5-5.1); Sodium 134 mmol/L (136-145); Total Bilirubin 0.6 mg/dL (0.15-1.2); Total Protein 5.6 g/dL (6.6-8.7)
[2025-02-26 12:52] LABS: Phosphorus 1.1 mg/dL (2.5-4.5)
[2025-02-26 13:11] LABS: Glucose Point of Care 293 mg/dL (70-110)
[2025-02-26] MEDS: pantoprazole 40 mg SDV IVP (13:25)
[2025-02-26] MEDS: enoxaparin 40 mg/0.4 mL Syringe SUBCUT (13:25)
[2025-02-26 14:06] LABS: Glucose Point of Care 284 mg/dL (70-110)
[2025-02-26 15:10] LABS: Glucose Point of Care 303 mg/dL (70-110)
[2025-02-26 16:11] LABS: Glucose Point of Care 276 mg/dL (70-110)
[2025-02-26 17:08] LABS: Glucose Point of Care 356 mg/dL (70-110)
[2025-02-26] MEDS: LORazepam 1 mg Tablet PO (17:41)
[2025-02-26 18:06] LABS: Glucose Point of Care 355 mg/dL (70-110)
[2025-02-26 18:08] LABS: Anion Gap 17.9 (5-19); Blood Urea Nitrogen 8 mg/dL (6-20); Calcium 8.3 mg/dL (8.5-10.5); Carbon Dioxide 16 mmol/L (22-29); Chloride 101 mmol/L (98-107); Glomerular Filtration Rate 137.4 mL/min (90-130); Glucose 346 mg/dL (65-115); Osmolality Calculated 284 mOsm/kg (285-295); Potassium 3.9 mmol/L (3.5-5.1); Sodium 131 mmol/L (136-145)
[2025-02-26] MEDS: sodium chloride 0.9% 1,000 ML 250 ML IV (18:33)
[2025-02-26 19:14] LABS: Glucose Point of Care 320 mg/dL (70-110)
[2025-02-26 20:16] LABS: Glucose Point of Care 172 mg/dL (70-110)
[2025-02-26] MEDS: INSULIN REGULAR IN 0.9 % NACL 100 UNIT/100 ML BAG IV (20:35)
[2025-02-26 21:20] LABS: Glucose Point of Care 206 mg/dL (70-110)
[2025-02-26 22:08] LABS: Glucose Point of Care 156 mg/dL (70-110)
[2025-02-26 23:07] LABS: Glucose Point of Care 134 mg/dL (70-110)
[2025-02-26 23:29] LABS: Anion Gap 13.3 (5-19); Blood Urea Nitrogen 7 mg/dL (6-20); Calcium 8.3 mg/dL (8.5-10.5); Carbon Dioxide 20 mmol/L (22-29); Chloride 103 mmol/L (98-107); Glomerular Filtration Rate 137.4 mL/min (90-130); Glucose 130 mg/dL (65-115); Magnesium 1.9 mg/dL (1.7-2.3); Osmolality Calculated 276 mOsm/kg (285-295); Phosphorus 1.1 mg/dL (2.5-4.5); Potassium 3.3 mmol/L (3.5-5.1); Sodium 133 mmol/L (136-145)
[2025-02-26 23:56] LABS: Glucose Point of Care 195 mg/dL (70-110)
[2025-02-27] VITALS (24 sets, daily range): BP systolic 134–158; BP diastolic 86–117; PULSE 63–93; RESP 14–22; TEMP 36.8–37.3; O2SAT 94–100; BMI 27.3
[2025-02-27] MEDS: insulin glargine 100 units/1 mL 20 UNIT SUBCUT ×2 (00:19→20:54)
[2025-02-27] MEDS: MELATONIN 3 MG TABLET PO ×2 (00:19→20:52)
[2025-02-27] MEDS: potassium chloride ER 20 mEq Tablet 40 MEQ PO ×2 (00:22→04:23)
[2025-02-27 01:06] LABS: Glucose Point of Care 182 mg/dL (70-110)
[2025-02-27 02:06] LABS: Glucose Point of Care 211 mg/dL (70-110)
--- NOTE | 2025-02-27 02:30 | PC.NURSE ---
Melatonin: Patient requesting melatonin to help him sleep, Dr. Galvez gave verbal orders for it.
--- NOTE | 2025-02-27 02:30 | PC.NURSE ---
Transition: Patient's gap was 13.3, Dr Galvez gave verbal orders to transition off insulin gtt after administration of 20 units lantus and start carb consistent diet. Dr. Galvez also gave verbal orders to give PO K replacement, 40meq PO Q4H for 2 doses.
[2025-02-27 03:23] LABS: Glucose Point of Care 213 mg/dL (70-110)
[2025-02-27 03:55] LABS: Basophils % 0.2 %; Eosinophils # 0.1 10^3/uL (0.0-0.8); Eosinophils % 0.4 %; Lymphocytes # 2.9 10^3/uL (0.8-4.8); Lymphocytes % 25.3 %; Mean Corpuscular HGB Conc 35.1 g/dL (30-55); Mean Corpuscular Hemoglobin 31.1 pg (27-33); Mean Corpuscular Volume 88.5 fl (82-101); Mean Platelet Volume 9.5 fL (7.4-10.4); Monocytes # 0.8 10^3/uL (0.2-0.9); Monocytes % 7.3 %; Neutrophils # 7.51 10^3/uL (1.8-7.7); Neutrophils % 66.4 %; Nucleated Red Blood Cells % 0 %; Platelet Count 198 10^3/cmm (157-399); Red Blood Count 4.18 10^6/uL (3.85-5.65); Red Cell Distribution Width 12.8 % (12.1-15.1); White Blood Count 11.32 10^3/uL (3.29-11.43)
[2025-02-27 04:11] LABS: Alanine Aminotransferase 25 U/L (0-41); Albumin Level 3.2 g/dL (3.5-5.2); Alkaline Phosphatase 133 U/L (40-130); Anion Gap 15.9 (5-19); Aspartate Amino Transferase 20 U/L (0-40); Blood Urea Nitrogen 6 mg/dL (6-20); Calcium 8.5 mg/dL (8.5-10.5); Carbon Dioxide 19 mmol/L (22-29); Chloride 103 mmol/L (98-107); Globulin 2.5 g/dL (1.3-4.6); Glomerular Filtration Rate 137.4 mL/min (90-130); Glucose 202 mg/dL (65-115); Osmolality Calculated 281 mOsm/kg (285-295); Phosphorus 1.3 mg/dL (2.5-4.5); Potassium 3.9 mmol/L (3.5-5.1); Sodium 134 mmol/L (136-145); Total Bilirubin 0.5 mg/dL (0.15-1.2); Total Protein 5.7 g/dL (6.6-8.7)
[2025-02-27] MEDS: acetaminophen 325 mg Tablet 650 MG PO (04:28)
[2025-02-27 04:31] LABS: Glucose Point of Care 261 mg/dL (70-110)
--- NOTE | 2025-02-27 06:21 | ECG_ITS ---
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 Measurements Intervals [place] Rate: 70 P: 10 NE: 113 QRS: -5 QRSD: 95 T: 9 QT: 371 QTc: 401 Interpretive Statements SINUS RHYTHM WITH SINUS ARRHYTHMIA WITH SHORT NE INTERVAL Compared to ECG 02/25/2025 08:26:24 Sinus tachycardia no longer present Electronically Signed On 03-05-2025 09:23:01 CDT by Margarito Vogel M.D. [id number] [id number]
[2025-02-27] MEDS: morphine 4 mg/mL SDV 1 mL 2 MG IVP (06:27)
[2025-02-27 07:49] LABS: Glucose Point of Care 338 mg/dL (70-110)
[2025-02-27] MEDS: TRAMadol 50 mg Tablet PO ×2 (08:20→23:22)
[2025-02-27] MEDS: insulin lispro 100 unit/1 mL SUBCUT ×4 (08:20→20:53)
[2025-02-27] MEDS: nicotine 14 mg Patch 1 PATCH TRANSDERMA ×2 (08:21→22:31)
[2025-02-27] MEDS: sucralfate 1 gm Tablet PO ×3 (11:47→20:52)
[2025-02-27 12:07] LABS: Glucose Point of Care 250 mg/dL (70-110)
[2025-02-27 16:04] LABS: Glucose Point of Care 243 mg/dL (70-110)
[2025-02-27] MEDS: enoxaparin 40 mg/0.4 mL Syringe SUBCUT (16:16)
[2025-02-27] MEDS: pantoprazole 40 mg SDV IVP (16:16)
[2025-02-27 18:05] LABS: Glucose Point of Care 225 mg/dL (70-110)
--- NOTE | 2025-02-27 18:11 | ECG_ITS ---
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 Measurements Intervals [place] Rate: 67 P: 10 [place]: 124 QRS: -6 QRSD: 103 T: 6 QT: 373 QTc: 396 Interpretive Statements SINUS RHYTHM WITH OCCASIONAL VENTRICULAR PREMATURE COMPLEXES Compared to ECG 02/27/2025 06:20:53 Ventricular premature complex(es) now present Sinus arrhythmia no longer present Short [place] interval no longer present Electronically Signed On 03-05-2025 09:18:15 CDT by Margarito Vogel M.D. [id number]
--- NOTE | 2025-02-27 18:12 | XRR_ITS ---
PROCEDURE INFORMATION: Exam: XR Chest Exam date and time: 02/27/2025 6:15 PM Age: 24 years old Clinical indication: Other: Persistent bothersome heartburn sensation TECHNIQUE: Imaging protocol: Radiologic exam of the chest. Views: 1 view. COMPARISON: CR XR chest 1V portable [id number] 02/25/2025 8:11 AM FINDINGS: Lungs: Unremarkable. No consolidation. Pleural spaces: Unremarkable. No pleural effusion. No pneumothorax. Heart/Mediastinum: Unremarkable. No cardiomegaly. Bones/joints: Old healed right rib fractures again seen. XR/XR chest 1V portable [id number] IMPRESSION: No acute findings.
--- NOTE | 2025-02-27 18:13 | P.PN_ITS ---
Subjective 2 Subjective: Overall improving, headache resolved, however, has been having very bothersome heartburn preventing him from eating this morning. Vitals/I&O/Wt Last Vital Signs Temp 98.3 F 02/27/25 04:00 Pulse 63 02/27/25 17:00 Resp 14 02/27/25 14:00 BP 135/105 02/27/25 17:00 Pulse Ox 99 02/27/25 17:00 O2 Del Method Room Air 02/27/25 17:00 02/27/25 02/27/25 02/27/25 06:59 14:59 22:59 Intake Total 1747.202 / 5291.1759 Output Total 650 / 2050 550 / 550 Balance 1097.202 / 3241.1759 -550 / -550 Weight last 48 hrs Weight 84 kg Weight 79.923 kg Physical Exam 2 Const: COMMON NORMALS: patient oriented x3 and alert GENERAL APPEARANCE: c ooperative ORIENTATION/CONSCIOUSNESS: Yes awake Neck/C-Spine: COMMON NORMALS: no JVD Resp: COMMON NORMALS: clear to auscultation bilaterally EFFORT & INSPECTION: Yes tachypneic AUSCULTATION: clear to auscultation bilaterally Cardio: COMMON NORMALS: no JVD, regular rhythm, S1 normal heart sound present, S2 normal heart sound present and No murmurs present (Cardio) RHYTHM: regular rhythm HEART SOUNDS: S1 normal heart sound present and S2 normal heart sound present GI: COMMON NORMALS: Normal to inspection, nondistended, normoactive bowel sounds present, Soft to palpation and non-tender PALPATION: Yes Soft to palpation Extremity: COMMON NORMALS: no joint enlargement and no pedal edema Neuro: COMMON NORMALS: patient oriented x3 and moves all extremities S ENSORIUM/ORIENTATION: Yes alert Skin: COMMON NORMALS: no rashes or lesions noted GENERAL SKIN EXAM: no rashes or lesions noted Data 02/27/25 03:15 02/27/25 03:15 A&P Assessment and plan (1) Diabetic ketoacidosis: Transition from insulin drip to subcutaneous insulin. Glucose will follow with improvement. Bicarb and anion gap improved. Difficulties with initiation of oral diet due to severe heartburn as below. Trial of oral diet. Continue subcutaneous insulin. Monitor blood glucose. Reviewed vitals, CBC, CMP, magnesium. Discussed with nursing, porter sample case. Zofran as needed for nausea. PPI prophylaxis with Protonix. DVT prophylaxis with Lovenox. (2) Heartburn: Developed severe heartburn preventing him from eating this morning. Requiring pain medications. Already on Protonix. Added sucralfate, but without relief. Requesting troponin EKG series. Repeat chest x-ray. GI cocktail. Trial of diet as tolerating. (3) Diabetes type 1: Has run out of insulin. Normally takes about 20 units of Basaglar and short acting insulin through the day. He had moved down here from [place]. Will need refill on insulin at discharge. Will need to reestablish with a primary provider and may be able to follow-up with endocrinology in [facility] as well which she states he will be trying to. Discussed with porter sample case. (4) Dehydration: Resolved (5) WILLIAM (acute kidney injury): Resolved with hydration. Likely prerenal. Reviewed BUN, creatinine, intake output. Electrolytes. Reassess chemistry Plan Headache: Resolved. Reviewed CT head. Discontinue morphine. Headache improving. Possible symptoms with glucose coming down in case of protracted hyperglycemia preadmission. States in the past has been given tramadol. Would avoid NSAIDs due to WILLIAM versus WILLIAM on CKD. Without nuchal rigidity. Photosensitivity. Afebrile. Leukocytosis: With hemoconcentration, dehydration, without evidence of active infection at this time. DKA suspected triggered due to running out of insulin as he states has happened in the past. Reviewed chest x-ray. He denies other symptoms of infection on review of systems. Smoking addiction: Continue to encourage cessation. PDMP PDMP Reviewed: Not Reviewed Attestations 2 Medical Necessity Statement*: Continue admission for assessment and management after DKA with difficulties with resumption of oral diet due to severe heartburn, continued optimization of blood glucose control. and High MDM includes amount and/or complexity of data reviewed/ordered [ resulted lab(s)/test(s), ordered lab(s)/test(s) and other healthcare professional discussion] as documented Diagnoses Diabetic ketoacidosis E11.10 Heartburn R12 Diabetes type 1 E10.9 Dehydration E86.0 WILLIAM (acute kidney injury) N17.9
[2025-02-27] MEDS: lidocaine 2% viscous 15 ML, aluminum-mag hydrox-simethicon 30 ML, sucralfate oral liq 1 GM PO (18:56)
[2025-02-27 19:23] LABS: Troponin(5th) Baseline < 6 ng/L (0-15)
--- NOTE | 2025-02-27 20:11 | ECG_ITS ---
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 Measurements Intervals [place] Rate: 68 P: 3 AL: 112 QRS: -4 QRSD: 103 T: 3 QT: 362 QTc: 386 Interpretive Statements SINUS RHYTHM WITH SHORT AL INTERVAL Compared to ECG 02/27/2025 18:20:27 Short AL interval now present Ventricular premature complex(es) no longer present Electronically Signed On 03-05-2025 09:39:06 CDT by Margarito Vogel M.D. [id number] [id number]
[2025-02-27] MEDS: LORazepam 1 mg Tablet PO (20:52)
[2025-02-27 20:57] LABS: Estmated Average Glucose 329; Hemoglobin A1C 13.1 % (4.0-6.0)
[2025-02-27 21:04] LABS: Glucose Point of Care 218 mg/dL (70-110)
[2025-02-27 22:13] LABS: Troponin 5 2HR < 6.0 ng/L (0-15); Troponin 5 2HR Delta 0 ABS# (0-10)
[2025-02-27 23:43] LABS: Glucose Point of Care 145 mg/dL (70-110)
[2025-02-27] MEDS: diphenhydrAMINE 50 mg Capsule PO (23:49)
[2025-02-28] VITALS: BP 154/89; PULSE 73; RESP 18; TEMP 37; O2SAT 98
--- NOTE | 2025-02-28 00:11 | ECG_ITS ---
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 Measurements Intervals [place] Rate: 59 P: 20 [place]: 112 QRS: -27 QRSD: 96 T: 13 QT: 402 QTc: 401 Interpretive Statements SINUS BRADYCARDIA WITH SINUS ARRHYTHMIA WITH SHORT [place] INTERVAL BORDERLINE LEFT AXIS DEVIATION [QRS AXIS < -20] Compared to ECG 02/27/2025 23:23:47 Sinus rhythm no longer present Electronically Signed On 03-05-2025 09:38:38 CDT by Margarito Vogel M.D. [id number] [id number]
[2025-02-28 00:58] LABS: Troponin 5 6HR < 6.0 ng/L (0-15); Troponin 5 6HR Delta 0 ng/L (0-12)
[2025-02-28 04:00] VITALS: BP 130/80; PULSE 59; RESP 19; TEMP 36.4; O2SAT 97
[2025-02-28 06:00] VITALS: PULSE 55
[2025-02-28 06:05] LABS: Basophils % 0.1 %; Eosinophils # 0.1 10^3/uL (0.0-0.8); Eosinophils % 0.7 %; Hematocrit 37.9 % (37-53); Lymphocytes % 41.1 %; Mean Corpuscular HGB Conc 35.6 g/dL (30-55); Mean Corpuscular Hemoglobin 31.8 pg (27-33); Mean Corpuscular Volume 89.2 fl (82-101); Mean Platelet Volume 10.2 fL (7.4-10.4); Monocytes # 0.5 10^3/uL (0.2-0.9); Monocytes % 7.2 %; Neutrophils # 3.63 10^3/uL (1.8-7.7); Neutrophils % 50.3 %; Nucleated Red Blood Cells % 0 %; Platelet Count 196 10^3/cmm (157-399); Red Blood Count 4.25 10^6/uL (3.85-5.65); Red Cell Distribution Width 12.8 % (12.1-15.1); White Blood Count 7.21 10^3/uL (3.29-11.43)
[2025-02-28 06:26] LABS: Glucose Point of Care 314 mg/dL (70-110)
[2025-02-28 06:32] LABS: Alanine Aminotransferase 30 U/L (0-41); Albumin Level 3.2 g/dL (3.5-5.2); Alkaline Phosphatase 114 U/L (40-130); Anion Gap 17.2 (5-19); Aspartate Amino Transferase 40 U/L (0-40); Blood Urea Nitrogen 10 mg/dL (6-20); Calcium 8.5 mg/dL (8.5-10.5); Carbon Dioxide 21 mmol/L (22-29); Chloride 102 mmol/L (98-107); Globulin 2.4 g/dL (1.3-4.6); Glomerular Filtration Rate 137.4 mL/min (90-130); Glucose 306 mg/dL (65-115); Osmolality Calculated 293 mOsm/kg (285-295); Potassium 4.2 mmol/L (3.5-5.1); Sodium 136 mmol/L (136-145); Total Bilirubin 0.4 mg/dL (0.15-1.2); Total Protein 5.6 g/dL (6.6-8.7)
[2025-02-28 07:54] VITALS: BP 138/93; PULSE 65; RESP 18; TEMP 36.7; O2SAT 98
[2025-02-28] MEDS: nicotine 14 mg Patch 1 PATCH TRANSDERMA (08:26)
[2025-02-28] MEDS: sucralfate 1 gm Tablet PO ×2 (08:26→12:24)
[2025-02-28] MEDS: insulin lispro 100 unit/1 mL SUBCUT ×2 (08:33→12:24)
[2025-02-28] MEDS: TRAMadol 50 mg Tablet PO (09:11)
[2025-02-28] MEDS: lidocaine 2% viscous 15 ML, aluminum-mag hydrox-simethicon 30 ML, sucralfate oral liq 1 GM PO (10:14)
--- NOTE | 2025-02-28 11:34 | PM.DCS ---
Discharge Providers Date of Admission: 02/25/25 07:59 Date of Discharge: February 28, 2025 Attending Provider at Admission: Carlos Granados Attending Provider at Discharge: Casey Colon MD Diagnoses at Discharge Discharge Diagnosis (1) Diabetic ketoacidosis: Status: Acute (2) Heartburn: Status: Acute (3) Diabetes type 1: Status: Acute (4) Dehydration: Status: Acute (5) WILLIAM (acute kidney injury): Status: Acute Reason for Visit Reason for Visit: N/V Brief History: As per HPI: 24-year-old gentleman with history of DM1 normally on insulin both long-acting with 20 units of Basaglar, as well as short acting insulin throughout the day per sliding scale depending on his sugars, had run out of insulin several days ago after recently moving down here. Before this he lived in [place] where he was following with primary provider and endocrinology. He stopped following with endocrinology after he had lost health insurance, although he states he has since reestablished Medicaid and will be interested in reestablishing with endocrinology here. He started feeling unwell over the last several days with poor appetite, oral intake, nausea, dry heaves, fatigue, blurred vision, symptoms he had previously had with DKA in the past. He reports a headache he has previously had in the past, and has been given Tylenol. He denies any additional different or new symptoms. In the ED he is found dehydrated with tachycardia, tachypnea, with dehydration and hemoconcentration, with leukocytosis 31.35 platelets 496, with metabolic acidosis, ABG pH 6.98, bicarb 4 anion gap 46.5, with WILLIAM versus WILLIAM on CKD, BUN 29, creatinine 1.7. He reports prior issues with his kidneys and that his levels have previously been abnormal in the past. Lactic acidosis 5.4. Glucose 891 presentation. ALT 44, alk phos 164. He received fluid boluses, Zofran, and was started on insulin drip. Hospital Course Hospital Course Patient was admitted to the hospital further evaluation and management of DKA. He was started on insulin drip and IV hydration. Gradually his anion gap resolved. His hospitalization was complicated by him developing significant GERD for which she was started on Protonix. Patient is able to maintain his oral intake. His blood glucose have remained stable. He is been discharged in stable condition on 20 units of Lantus along with Humalog premeals as per sliding scale. He has been asked not to take ibuprofen anymore and started on Protonix 40 mg daily along with Carafate twice daily. Physical Exam Const: COMMON NORMALS: patient oriented x3 and alert GENERAL APPEARANCE: cooperative ORIENTATION/CONSCIOUSNESS: Yes awake OTHER: Wakes up to voice and shoulder touch. HENMT: OTHER: Dry MM Neck/C-Spine: COMMON NORMALS: no JVD Resp: COMMON NORMALS: clear to auscultation bilaterally EFFORT & INSPECTION: Yes tachypneic AUSCULTATION: clear to auscultation bilaterally Cardio: COMMON NORMALS: no JVD, regular rhythm, S1 normal heart sound present, S2 normal heart sound present and No murmurs present (Cardio) RHYTHM: regular rhythm HEART SOUNDS: S1 normal heart sound present and S2 normal heart sound present GI: COMMON NORMALS: Normal to inspection, nondistended, normoactive bowel sounds present, Soft to palpation and non-tender PALPATION: Yes Soft to palpation Extremity: COMMON NORMALS: no joint enlargement and no pedal edema Neuro: COMMON NORMALS: patient oriented x3 and moves all extremities SENSORIUM/ORIENTATION: Yes alert Skin: COMMON NORMALS: no rashes or lesions noted GENERAL SKIN EXAM: no rashes or lesions noted Discharge Data Studies Completed and Pending Completed Studies During Hospitalization Category Date Time Status CT head wo con* [id number] Stat Cat Scan 02/25/25 14:44 Completed CXRP [XR chest 1V portable [id number]] Routine Exams 02/27/25 18:12 Completed XR chest 1V portable [id number] Stat Exams 02/25/25 07:50 Completed Pending at discharge Category Date Time Status Blood Culture Stat Lab 02/25/25 10:50 Results Radiology Impressions Head CT 02/25/25 14:44 IMPRESSION: Negative head CT. Chest X-Ray 02/27/25 18:12 IMPRESSION: No acute findings. Laboratory Results WBC 7.21 10^3/uL (3.29-11.43) 02/28/25 04:32 RBC 4.25 10^6/uL (3.85-5.65) 02/28/25 04:32 Hgb 13.50 g/dL (11.27-16.99) 02/28/25 04:32 Hct 37.9 % (37-53) 02/28/25 04:32 MCV 89.2 fl (82-101) 02/28/25 04:32 MCH 31.8 pg (27-33) 02/28/25 04:32 MCHC 35.6 g/dL (30-55) 02/28/25 04:32 RDW 12.8 % (12.1-15.1) 02/28/25 04:32 Plt Count 196 10^3/cmm (157-399) 02/28/25 04:32 MPV 10.2 fL (7.4-10.4) 02/28/25 04:32 Neut % (Auto) 50.3 % 02/28/25 04:32 Lymph % (Auto) 41.1 % 02/28/25 04:32 Butts % (Auto) 7.2 % 02/28/25 04:32 Eos % (Auto) 0.7 % 02/28/25 04:32 Baso % (Auto) 0.1 % 02/28/25 04:32 Neut # (Auto) 3.63 10^3/uL (1.8-7.7) 02/28/25 04:32 Lymph # (Auto) 3.0 10^3/uL (0.8-4.8) 02/28/25 04:32 Butts # (Auto) 0.5 10^3/uL (0.2-0.9) 02/28/25 04:32 Eos # (Auto) 0.1 10^3/uL (0.0-0.8) 02/28/25 04:32 Baso # (Auto) 0.0 10^3/uL (0.0-0.1) 02/28/25 04:32 Nucleated RBC % (auto) 0 % 02/28/25 04:32 Nucleated RBCs # 0.0 /100WBC 02/28/25 04:32 Specimen Type Arterial 02/25/25 08:42 Sample Site Radial, right 02/25/25 08:42 ABG pH 7.06 (7.35-7.45) L* 02/25/25 08:42 ABG pCO2 14.2 mmHg (35-45) L* 02/25/25 08:42 ABG pO2 113.0 mmHg (80.0-100.0) H 02/25/25 08:42 ABG PO2/FiO2 Ratio 538 06/25/25 08:42 ABG HCO3 4.0 mmol/L (22-26) L 02/25/25 08:42 ABG O2 Saturation 98.2 02/25/25 08:42 ABG Base Excess -24.4 mmol/L (-2.0-2.0) L 02/25/25 08:42 Gerardo Test Pos 02/25/25 08:42 A-a O2 Gradient 2.1 mmHg (5-10) L 02/25/25 08:42 Hematocrit 46.5 % (42-52) 02/25/25 08:42 Hgb O2 Saturation 95.7 % (95-100) 02/25/25 08:42 Carboxyhemoglobin 1.2 %THgb (0.4-20.1) 02/25/25 08:42 Methemoglobin 1.3 % (0.4-1.5) 02/25/25 08:42 Total Hemoglobin 15.2 g/dL (14-18) 02/25/25 08:42 Sodium 132.0 mmol/L (131-143) 02/25/25 08:42 Potassium 4.4 mmol/L (3.5-5.0) 02/25/25 08:42 Glucose 690.0 mg/dL (70-115) H 02/25/25 08:42 Ionized Calcium 1.2 mmol/L (1.1-1.4) 02/25/25 08:42 O2 Delivery Device Room air 02/25/25 08:42 FiO2 21.0 % 02/25/25 08:42 Employment Program Representative ID Monro 02/25/25 08:42 Sodium 136 mmol/L (136-145) 02/28/25 04:32 Potassium 4.2 mmol/L (3.5-5.1) 02/28/25 04:32 Chloride 102 mmol/L (98-107) 02/28/25 04:32 Carbon Dioxide 21 mmol/L (22-29) L 02/28/25 04:32 Anion Gap 17.2 (5-19) 02/28/25 04:32 BUN 10 mg/dL (6-20) 02/28/25 04:32 Creatinine 0.7 mg/dL (0.7-1.2) 02/28/25 04:32 GFR Calculation 137.4 mL/min (90-130) H 02/28/25 04:32 Glucose 306 mg/dL (65-115) H 02/28/25 04:32 POC Glucose 314 mg/dL (70-110) H 02/28/25 06:17 Estimat Average Glucose 329 02/27/25 03:15 Hemoglobin A1c 13.1 % (4.0-6.0) H 02/27/25 03:15 Calculated Osmolality 293 mOsm/kg (285-295) 02/28/25 04:32 Lactic Acid 5.4 mmol/L (0.5-2.2) H* 02/25/25 07:10 Lactic Acid (Sepsis) 4.9 mmol/L (0.5-2.2) H* 02/25/25 10:50 Calcium 8.5 mg/dL (8.5-10.5) 02/28/25 04:32 Phosphorus 1.3 mg/dL (2.5-4.5) L 02/27/25 03:15 Magnesium 2.0 mg/dL (1.7-2.3) 02/27/25 03:15 Total Bilirubin 0.4 mg/dL (0.15-1.2) 02/28/25 04:32 AST 40 U/L (0-40) 02/28/25 04:32 ALT 30 U/L (0-41) 02/28/25 04:32 Alkaline Phosphatase 114 U/L (40-130) 02/28/25 04:32 Troponin T Baseline < 6 ng/L (0-15) 02/27/25 18:51 Troponin T 120 Minute < 6.0 ng/L (0-15) 02/27/25 21:47 Delta Troponin T 0 ABS# (0-10) 02/27/25 21:47 Troponin T Hi Sens 6Hr < 6.0 ng/L (0-15) 02/28/25 00:30 Troponin T Hi Sens 6Hr Delta 0 ng/L (0-12) 02/28/25 00:30 C-Reactive Protein 7.2 mg/L (0.0-4.9) H 02/25/25 07:10 Total Protein 5.6 g/dL (6.6-8.7) L 02/28/25 04:32 Albumin 3.2 g/dL (3.5-5.2) L 02/28/25 04:32 Globulin 2.4 g/dL (1.3-4.6) 02/28/25 04:32 Lipase 26 U/L (13-60) 02/25/25 07:10 Urine Color Yellow (Yellow) 02/25/25 14:09 Urine Appearance Clear (CLEAR) 02/25/25 14:09 Urine pH 5.0 (5-7) 02/25/25 14:09 Ur Specific [place] 1.029 (1.005-1.030) 02/25/25 14:09 Urine Protein 2+ (Negative) A 02/25/25 14:09 Urine Glucose (UA) 2+ (Normal) H 02/25/25 14:09 Urine Ketones 4+ (Negative) 02/25/25 14:09 Urine Blood 2+ (Negative) A 02/25/25 14:09 Urine Nitrate Negative (Negative) 02/25/25 14:09 Urine Bilirubin Negative (Negative) 02/25/25 14:09 Urine Urobilinogen 1.0 mg/dL (Negative) 02/25/25 14:09 Ur Leukocyte Esterase Negative (Negative) 02/25/25 14:09 Urine RBC 0-2 /hpf (0-2) 02/25/25 14:09 Urine WBC 0-5 /hpf (0-5) 02/25/25 14:09 Ur Squamous Epith Cells 0-5 /hpf (0-5) 02/25/25 14:09 Amorphous Sediment Not Reportable 02/25/25 14:09 Urine Bacteria None seen /hpf (NONE) 02/25/25 14:09 Hyaline Casts 3.30 /lpf 02/25/25 14:09 Urine Opiates Screen Negative ng/mL (Negative) 02/25/25 14:09 Ur Barbiturates Screen Negative ng/mL (Negative) 02/25/25 14:09 Ur Phencyclidine Scrn Negative ng/mL (Negative) 02/25/25 14:09 Ur Amphetamines Screen Negative ng/mL (Negative) 02/25/25 14:09 U Benzodiazepines Scrn Negative ng/mL (Negative) 02/25/25 14:09 Urine Cocaine Screen Negative ng/mL (Negative) 02/25/25 14:09 U Marijuana (THC) Screen Positive ng/mL (Negative) H 02/25/25 14:09 Serum Ketones Positive (Negative) H 02/25/25 07:10 Vitals Last Vital Signs Temp 98.1 F 02/28/25 07:54 Pulse 65 02/28/25 07:54 Resp 18 02/28/25 07:54 BP 138/93 02/28/25 07:54 Pulse Ox 98 02/28/25 07:54 O2 Del Method Room Air 02/28/25 04:00 Discharge Plan Discharge Patient Disposition: Home Condition: Stable Prescriptions: New (DME) blood-glucose meter [Blood Glucose Monitoring] Kit See Rx Instructions .ROUTE .MEDSUPPLY Qty: 1 0RF Rx Instructions: As directed (DME) lancets Misc See Rx Instructions .ROUTE .MEDSUPPLY Qty: 100 0RF Rx Instructions: As directed insulin glargine [Lantus Solostar U-100 Insulin] 100 unit/mL (3 mL) insulin pen 20 unit SUBCUT QPM Qty: 15 0RF Rx Instructions: 20 units subcutaneously; pantoprazole [Protonix] 40 mg tablet,delayed release (DR/EC) 40 mg PO QAM Qty: 30 0RF sucralfate 1 gram Tablet 1 g PO AC&BEDTIME 30 Days Qty: 90 0RF insulin lispro [Humalog KwikPen Insulin] 100 unit/mL insulin pen See Protocol SUBCUT QPM Qty: 15 0RF Protocol: Insulin Corrective High-Dose Regimen Condition: Fingerstick Blood Glucose Dose/Route: Insulin Units Condition: 141-180 mg/dl Dose/Route: 2 units/SQ Condition: 181-220 mg/dl Dose/Route: 4 units/SQ Condition: 221-260 mg/dl Dose/Route: 4 units/SQ Condition: 261-300 mg/dl Dose/Route: 8 units/SQ Condition: 301-350 mg/dl Dose/Route: 10 units/SQ Condition: 351-400 mg/dl Dose/Route: 12 units/SQ Condition: greater than 400 mg/dl Dose/Route: 14 units/SQ Discontinued insulin glargine 100 unit/mL Solution See Rx Instructions .ROUTE .COMPLEX Rx Instructions: Inject 60-80 units per sliding scale daily ibuprofen [Advil] 200 mg Tablet 800 mg PO Q6H PRN (Reason: Fever Or Pain) insulin aspart U-100 100 unit/mL Solution 20 unit SUBCUT BEDTIME Rx Instructions: Inject 20 units at Bedtime Discharge Orders: Discharge Order (Routine); Ordered 02/28/25 Ordered By: Casey Colon Referrals: Katherine Ulloa NP [Nurse Practitioner, Family Practice] - 03/02/25 9:00 am An Vail MD [Physician, Endocrinology] - 2 weeks Referral Note: DM1 We have notified your physician's clinic of the need for a follow-up appointment to be scheduled. If you have not heard from them within the next 2 business days, please call them directly. Discharge Diet: Diabetic Patient Instructions: Opioid Safety, Patient Portal & Alexis Instructions Discharge Attestations Time Spent in Discharge Care*: greater than 30 min Specific Discharge Activities: educating patient, discussing with pcp/other providers, discussing with case monitor/social workers/dc planners, documenting/other paperwork and evaluating patient/reviewing data Quality Metrics Clinical Quality Measures [ No reported AMI, CVA or VTE this stay] Coding Level of Care Code 51749 Total time (in minutes) for Discharge: 65 Diagnoses Diabetic ketoacidosis E11.10 Heartburn R12 Diabetes type 1 E10.9 Dehydration E86.0 WILLIAM (acute kidney injury) N17.9
[2025-02-28 11:51] LABS: Glucose Point of Care 188 mg/dL (70-110)
[2025-02-28 12:06] VITALS: BP 157/98; PULSE 78; RESP 18; TEMP 36.9; O2SAT 98
--- NOTE | 2025-02-28 12:47 | PC.NURSE ---
Patient states that he has a blood glucose monitor at home along with all the strips and lancets. Patient denies the need for these things even though they were ordered at discharge.
--- NOTE | 2025-02-28 13:56 | PC.NURSE ---
Went over discharge with patient. Discussed sliding scale, new medications, continued medications and follow up appointments. Patient verbalized understanding. Stated he knows how to check his blood sugar and give insulin to self. All other questions answered.
[2025-02-28 13:58] VITALS: BP 157/98; PULSE 78; RESP 18; TEMP 36.9; O2SAT 98
== END 2025-02-28 13:28 | disposition home or self-care (01) | DRG 638 ==
LOC: ER 07:21 → ER IP 08:00 → ICU 13:19 → MEDSURG 02-27 22:26
PROVIDERS: Internal Medicine; Admitting Provider Internal Medicine; Emergency Provider Emergency Medicine; Visit Provider Student in an Organized Health Care Education/Training Program
DX: E10.10 Type 1 diabetes mellitus with ketoacidosis without coma (principal); N17.9 Acute kidney failure, unspecified; K21.9 Gastro-esophageal reflux disease without esophagitis; E86.0 Dehydration; F17.210 Nicotine dependence, cigarettes, uncomplicated; Z79.4 Long term (current) use of insulin; Z91.128 Patient's intentional underdosing of medication regimen for other reason
CPT/HCPCS: 36415; 36416; 36600; 70450; 71045; 80048; 80051; 80053; 80306; 81001; 82009; 82330; 82805; 82962; 83036; 83605; 83690; 83735; 84100; 84484; 85025; 86140; 87040; 93005; 96365; 96366; 96367; 96372; 96375; 96376; 99285; J0131; J1650; J1815; J2270; J2405; J2470; J7030; J7050; J7799; J9999; Q0163

== ENCOUNTER 2025-03-01 23:37 | Emergency (ER) | payer MEDICAID, SELFPAY ==
[2025-03-01 23:46] VITALS: BP 164/109; PULSE 113; RESP 16; TEMP 37.4; O2SAT 97; BMI 24.3
[2025-03-02 00:57] VITALS: BP 179/118; PULSE 134; O2SAT 98
--- NOTE | 2025-03-02 01:39 | XRR_ITS ---
PROCEDURE INFORMATION: Exam: XR Chest Exam date and time: 03/02/2025 1:41 AM Age: 24 years old Clinical indication: Other: Epigastric pain TECHNIQUE: Imaging protocol: Radiologic exam of the chest. Views: 1 view. COMPARISON: CR (CHEST, ) 02/27/2025 6:15 PM FINDINGS: Lungs: Unremarkable. No consolidation. Pleural spaces: Unremarkable. No pleural effusion. No pneumothorax. Heart/Mediastinum: Unremarkable. No cardiomegaly. Bones/joints: Mild dextroscoliosis. XR/XR chest 1V portable [id number] IMPRESSION: No acute findings.
--- NOTE | 2025-03-02 01:47 | W.ED.ABDPA2 ---
HPI - Abdominal Pain General: Chief Complaint: Airway/Esophagus Foreign Body Stated Complaint: Gastric Pain\Something Stuck in Throat Time Seen by Provider: 03/02/25 01:28 History of Present Illness: 24-year-old male insulin-dependent diabetic. He is here with epigastric pain that started prior to arrival. He states that he was here with DKA, discharged from the hospital yesterday. He states that earlier this evening, he was eating cheese its, and felt as if they got stuck in the back of his throat. He swallowed, and had pain down to his epigastrium. He continues to have pain in the epigastrium. He forced himself to vomit, but continues to have the sensation of something stuck in his epigastrium. He was very anxious in triage. The pain is improved to some degree. He had similar problems with esophagitis from vomiting while he was in the hospital, and had been taking Protonix and sucralfate. Related Data Previous Rx's ?Medication ?Instructions ?Recorded blood-glucose meter (Blood Glucose #1 ea 02/28/25 Monitoring kit) insulin glargine 100 unit/mL (3 20 unit (0.2 mL) SUBCUT QPM #15 mL 02/28/25 mL) subcutaneous pen (Lantus Solostar U-100 Insulin) insulin lispro 100 unit/mL See Protocol SUBCUT QPM #15 mL 02/28/25 subcutaneous pen (Humalog KwikPen (U-100) Insulin) lancets #100 ea 02/28/25 pantoprazole 40 mg tablet,delayed 40 mg PO QAM #30 tabs 02/28/25 release (Protonix) sucralfate 1 gram tablet 1 g PO AC&BEDTIME 30 days #90 tabs 02/28/25 Allergies Allergy/AdvReac Type Severity Reaction Status Date / Time No Known Allergies Allergy Verified 03/01/25 23:57 [facility] ED PFSH: Medical History Diabetes type 1 Surgical History History of appendectomy Social History Smoking and tobacco/nicotine status: current every day tobacco/nicotine user Alcohol intake: never Substance/Drug Use: never Physical Exam Const: COMMON NORMALS: no acute distress GENERAL APPEARANCE: cooperative; not ill appearing and not frail appearing HENMT: COMMON NORMALS: normocephalic, atraumatic and Normal external nose present HEAD & SCALP: normocephalic and atraumatic FACE & SINUS: normal facial exam and face symmetric NOSE: Normal external nose present Eye: COMMON NORMALS: Equal, round and reactive pupils present and EOMs intact bilaterally PUPIL: Yes Equal, round and reactive pupils present Neck/C-Spine: GENERAL: Yes trachea midline Chest: CHEST: Yes Symmetrical chest wall rise Resp: COMMON NORMALS: normal respiratory effort, No retractions, No use of accessory muscles and clear to auscultation bilaterally AUSCULTATION: clear to auscultation bilaterally Cardio: COMMON NORMALS: regular rhythm RATE: tachycardic RHYTHM: regular rhythm GI: COMMON NORMALS: Normal to inspection, nondistended, normoactive bowel sounds present PALPATION: Yes Tenderness to palpation present (GI) (Epigastric) and No Guarding due to palpation present (GI) Extremity: COMMON NORMALS: no pedal edema Neuro: MARSHALL COMA SCALE: document GCS findings Marshall coma scale eye opening: Spontaneous Marshall coma scale verbal response: Orientated [place] coma scale motor response: Obey commands Marshall coma scale total score: 15 SENSORY EXAM: Yes extremities (intact) Psych: COMMON NORMALS: speech normal SPEECH: Yes normal speech Skin: COMMON NORMALS: no rashes or lesions noted GENERAL SKIN EXAM: no rashes or lesions noted Course Vital Signs: Vital signs: Vital Signs Temperature 99.3 F 03/01/25 23:46 Pulse Rate 108 H 03/02/25 03:47 Respiratory Rate 16 03/01/25 23:46 Blood Pressure 146/99 03/02/25 03:47 Pulse Oximetry 97 03/02/25 03:47 Oxygen Delivery Me thod Room Air 03/01/25 23:46 MDM - Abdominal Pain Medical Decision Making Patient is much improved after drinking a GI cocktail. Symptoms are essentially resolved. He is still tachycardic. This is improved now, below 100 after metoprolol. He was hypertensive, but this is improved after metoprolol. White blood cell count is 13.5. Other laboratory including serum ketones and alcohol are not remarkable. Chest x-ray is nonacute. With improvement in his symptoms will be discharged home. Urine sample as well as urine drug screen had been ordered, but the patient missed the cup in the bathroom. Lab Data 03/02/25 02:15 03/02/25 02:15 Labs/Radiology: Radiology Impressions Chest X-Ray 03/02/25 01:39 IMPRESSION: No acute findings. Laboratory Results WBC 13.46 10^3/uL (3.29-11.43) H 03/02/25 02:15 RBC 4.44 10^6/uL (3.85-5.65) 03/02/25 02:15 Hgb 14.20 g/dL (11.27-16.99) 03/02/25 02:15 Hct 40.1 % (37-53) 03/02/25 02:15 MCV 90.3 fl (82-101) 03/02/25 02:15 MCH 32.0 pg (27-33) 03/02/25 02:15 MCHC 35.4 g/dL (30-55) 03/02/25 02:15 RDW 13.1 % (12.1-15.1) 03/02/25 02:15 Plt Count 409 10^3/cmm (157-399) H 03/02/25 02:15 MPV 9.3 fL (7.4-10.4) 03/02/25 02:15 Neut % (Auto) 58.1 % 03/02/25 02:15 Lymph % (Auto) 32.8 % 03/02/25 02:15 [place] % (Auto) 7.3 % 03/02/25 02:15 Eos % (Auto) 0.6 % 03/02/25 02:15 Baso % (Auto) 0.3 % 03/02/25 02:15 Neut # (Auto) 7.82 10^3/uL (1.8-7.7) H 03/02/25 02:15 Lymph # (Auto) 4.4 10^3/uL (0.8-4.8) 03/02/25 02:15 [place] # (Auto) 1.0 10^3/uL (0.2-0.9) H 03/02/25 02:15 Eos # (Auto) 0.1 10^3/uL (0.0-0.8) 03/02/25 02:15 Baso # (Auto) 0.0 10^3/uL (0.0-0.1) 03/02/25 02:15 Nucleated RBC % (auto) 0 % 03/02/25 02:15 Nucleated RBCs # 0.0 /100WBC 03/02/25 02:15 Sodium 136 mmol/L (136-145) 03/02/25 02:15 Potassium 4.0 mmol/L (3.5-5.1) 03/02/25 02:15 Chloride 96 mmol/L (98-107) L 03/02/25 02:15 Carbon Dioxide 22 mmol/L (22-29) 03/02/25 02:15 Anion Gap 22.0 (5-19) H 03/02/25 02:15 BUN 15 mg/dL (6-20) 03/02/25 02:15 Creatinine 0.9 mg/dL (0.7-1.2) 03/02/25 02:15 GFR Calculation 102.8 mL/min (90-130) 03/02/25 02:15 Glucose 178 mg/dL (65-115) H 03/02/25 02:15 Calculated Osmolality 287 mOsm/kg (285-295) 03/02/25 02:15 Lactic Acid 3.8 mmol/L (0.5-2.2) H 03/02/25 02:15 Calcium 9.8 mg/dL (8.5-10.5) 03/02/25 02:15 Total Bilirubin 0.4 mg/dL (0.15-1.2) 03/02/25 02:15 AST 25 U/L (0-40) 03/02/25 02:15 ALT 33 U/L (0-41) 03/02/25 02:15 Alkaline Phosphatase 143 U/L (40-130) H 03/02/25 02:15 C-Reactive Protein 22.7 mg/L (0.0-4.9) H 03/02/25 02:15 Total Protein 7.6 g/dL (6.6-8.7) 03/02/25 02:15 Albumin 4.1 g/dL (3.5-5.2) 03/02/25 02:15 Globulin 3.5 g/dL (1.3-4.6) 03/02/25 02:15 Lipase 17 U/L (13-60) 03/02/25 02:15 Ethyl Alcohol < 10 mg/dL (0-10) 03/02/25 02:15 Serum Ketones Negative (Negative) 03/02/25 02:15 All radiology interpretation(s) finalized by discharge Discharge Plan Discharge Patient Disposition: Home Clinical Impression: Esophageal spasm Condition: Stable Prescriptions: No Action sucralfate 1 gram Tablet 1 g PO AC&BEDTIME 30 Days Qty: 90 0RF pantoprazole [Protonix] 40 mg tablet,delayed release (DR/EC) 40 mg PO QAM Qty: 30 0RF (DME) blood-glucose meter [Blood Glucose Monitoring] Kit See Rx Instructions .ROUTE .MEDSUPPLY Qty: 1 0RF Rx Instructions: As directed insulin lispro [Humalog KwikPen Insulin] 100 unit/mL insulin pen See Protocol SUBCUT QPM Qty: 15 0RF Protocol: Insulin Corrective High-Dose Regimen Condition: Fingerstick Blood Glucose Dose/Route: Insulin Units Condition: 141-180 mg/dl Dose/Route: 2 units/SQ Condition: 181-220 mg/dl Dose/Route: 4 units/SQ Condition: 221-260 mg/dl Dose/Route: 4 units/SQ Condition: 261-300 mg/dl Dose/Route: 8 units/SQ Condition: 301-350 mg/dl Dose/Route: 10 units/SQ Condition: 351-400 mg/dl Dose/Route: 12 units/SQ Condition: greater than 400 mg/dl Dose/Route: 14 units/SQ insulin glargine [Lantus Solostar U-100 Insulin] 100 unit/mL (3 mL) insulin pen 20 unit SUBCUT QPM Qty: 15 0RF Rx Instructions: 20 units subcutaneously; (DME) lancets Misc See Rx Instructions .ROUTE .MEDSUPPLY Qty: 100 0RF Rx Instructions: As directed Discharge Orders: Discharge ED (Routine); Ordered 03/02/25 Ordered By: Brad Sherwood Referrals: Katherine Ulloa NP [Primary Care Provider, Family Practice] Patient Instructions: Esophageal Spasm (ED), Opioid Safety, Pain Management, Patient Portal & Alexis Instructions Activity Restrictions/Additional Instructions: Take the sucralfate and pantoprazole you were prescribed previously faithfully. Follow a liquid diet for the next 12 hours, you may progress to soft food for 24 hours following that. If no symptoms, you may progress to solid food. Drink plenty of water. Return for any problems. Print Language: Sami Coding Level of Care Code ED Jet Handler for Kimberlee Monsalve
[2025-03-02 02:00] VITALS: BP 159/103; PULSE 113; O2SAT 97
[2025-03-02] MEDS: sodium chloride 0.9% 1,000 ML 999 ML IV (02:22)
[2025-03-02] MEDS: lidocaine 2% viscous 15 ML, aluminum-mag hydrox-simethicon 30 ML, sucralfate oral liq 1 GM PO (02:24)
[2025-03-02 02:45] LABS: Basophils % 0.3 %; Eosinophils # 0.1 10^3/uL (0.0-0.8); Eosinophils % 0.6 %; Hematocrit 40.1 % (37-53); Lymphocytes # 4.4 10^3/uL (0.8-4.8); Lymphocytes % 32.8 %; Mean Corpuscular HGB Conc 35.4 g/dL (30-55); Mean Corpuscular Volume 90.3 fl (82-101); Mean Platelet Volume 9.3 fL (7.4-10.4); Monocytes % 7.3 %; Neutrophils # 7.82 10^3/uL (1.8-7.7); Neutrophils % 58.1 %; Nucleated Red Blood Cells % 0 %; Platelet Count 409 10^3/cmm (157-399); Red Blood Count 4.44 10^6/uL (3.85-5.65); Red Cell Distribution Width 13.1 % (12.1-15.1); White Blood Count 13.46 10^3/uL (3.29-11.43)
[2025-03-02 02:46] LABS: Ketone (Acetest) Serum Negative (Negative)
[2025-03-02 02:54] LABS: Lactic Sepsis W/Reflex 3.8 mmol/L (0.5-2.2)
[2025-03-02 02:55] LABS: Alanine Aminotransferase 33 U/L (0-41); Albumin Level 4.1 g/dL (3.5-5.2); Alkaline Phosphatase 143 U/L (40-130); Aspartate Amino Transferase 25 U/L (0-40); Blood Urea Nitrogen 15 mg/dL (6-20); C Reactive Protein 22.7 mg/L (0.0-4.9); Calcium 9.8 mg/dL (8.5-10.5); Carbon Dioxide 22 mmol/L (22-29); Chloride 96 mmol/L (98-107); Globulin 3.5 g/dL (1.3-4.6); Glomerular Filtration Rate 102.8 mL/min (90-130); Glucose 178 mg/dL (65-115); Lipase 17 U/L (13-60); Osmolality Calculated 287 mOsm/kg (285-295); Sodium 136 mmol/L (136-145); Total Bilirubin 0.4 mg/dL (0.15-1.2); Total Protein 7.6 g/dL (6.6-8.7)
[2025-03-02 02:58] LABS: Alcohol Level < 10 mg/dL (0-10)
[2025-03-02 02:59] LABS: Reflex Lactate Order REFLEX LACTIC ORDERD
[2025-03-02] MEDS: metoprolol tartrate 1 mg/1 mL SDV 5 mL 5 MG IVP (03:06)
[2025-03-02 03:47] VITALS: BP 146/99; PULSE 108; O2SAT 97
== END 2025-03-02 03:48 | disposition home or self-care (01) ==
PROVIDERS: Emergency Provider Emergency Medicine
DX: K22.4 Dyskinesia of esophagus (principal); Z79.4 Long term (current) use of insulin; Z72.0 Tobacco use; E10.8 Type 1 diabetes mellitus with unspecified complications
CPT/HCPCS: 71045; 80053; 80307; 82009; 83605; 83690; 85025; 86140; 96374; 99284; J3490; J7030; J9999

== ENCOUNTER 2025-03-06 11:21 | Inpatient (IN) | payer MEDICAID, SELFPAY ==
--- OUTSIDE RECORDS SUMMARY | 2013-12-06 19:00 | XMS_ITS | Continuity of Care Document ---
Author Organization [facility] Address [address] [place] [address] Phone Care Team Providers Care Home Support Worker Name Role Phone Unavailable Unavailable Unavailable Advance Directives Directive Yes / No Effective Date File Name No Information Encounters Encounter Description Practice Location Reason(s) For Visit Diagnoses Date Provider Providers Copied on Encounter [facility], [address], [place], [address], [place] tel:[phone] 1429 [facility] No Information Dec-0 6201 4 No Information Referring Provider: MJ LEE J, [address] [place], [address]. tel:[phone] Family History Family Member Type Diagnosis Age At Onset No Information Payers Payer name Insurance type Covered green party ID Authoriza tistar(s) [place] [employer] [id number] Social History Type Description Quantity Date Captured Comments Sex Male Smoking Status No Information Chief Complaint And Reason For Visit No Information History Of Present Illness Encounter Date Complaint History Of Prese nt Illness No Information Instructions Date Instruction Additional Infor mation No Information Assessments Type Assessment Date No Information
--- OUTSIDE RECORDS SUMMARY | 2017-10-23 09:30 | XMS_ITS | Continuity of Care Document ---
Author Organization [facility] Address [address] [id number] [address] Phone Care Team Providers Care Can Inspector Name Role Phone Levon ABIGAIL Checo Unavailable Unavailable Unavailable Unavailable Unavailable Allergies, Adverse Reactions, Alerts Substance Reaction Status Criticality codeine Active No Information Medications Medication Instructions Dosage Effective Dates (start - stop) Status Comments HUMALOG (unknown strength) inject by subcutaneous route as per insulin sliding scale protocol Not Available - Active LANTUS (unknown strength) inject by subcutaneous route as per insulin protocol Not Available - Active chlorhexidine gluconate 0.12 % mouthwash place 15 ml. in mouth and rinse for 30 seconds BID PRN for gingival inflamation - No Longer Active Problems Condition Type Effective Dates (start - stop) Clini jalil Status Comments No Known Problems Procedures Procedure Date Post Op No Charge EDR Approval Note Post Op No Charge EDR Approval Note Self-management Goals Reviewed 18 Oral Hygiene Instructions Nutritional Counseling For Control Of De ntal Disea Caries Low Risk Exempt From Sealant Measure Oral Hygiene Instructions Caries Moderate Risk Exempt From Sealant Measure Distal Or Proximal Wedge Procedure (When Not Perfo Treatment Plan Complete EDR Approval Note EDR Approval Note Bitewings Four Films Prophylaxis Adult Topical Fluoride Varnish; Therapeutic Ap plication Periodic Oral Evaluation Established Patient Sealant Repair per tooth Self-management Goals Reviewed 18 Oral Hygiene Instructions Nutritional Counseling For Control Of De ntal Disea Caries Low Risk Exempt From Sealant Measure EDR Approval Note Bitewings Four Films Periodic Oral Evaluation Established Patient Prophylaxis Adult Topical Fluoride Varnish; Therapeutic Ap plication Self-management Goals Reviewed 17 Oral Hygiene Instructions Nutritional Counseling For Control Of De ntal Disea Caries Moderate Risk EDR Approval Note Bitewings Four Films Periodic Oral Evaluation Established Patient Topical Fluoride Varnish; Therapeutic Ap plication Prophylaxis Adult Self-management Goals Reviewed 16 Oral Hygiene Instructions Nutritional Counseling For Control Of De ntal Disea Caries Low Risk EDR Approval Note Self-management Goals Reviewed 16 Oral Hygiene Instructions Nutritional Counseling For Control Of De ntal Disea Caries Moderate Risk Bitewings Four Films Topical Fluoride Varnish; Therapeutic Ap plication Prophylaxis Adult Periodic Oral Evaluation Established Patient Sealant Per Tooth Sealant Per Tooth EDR Approval Note Bitewings Four Films Self-management Goals Reviewed 15 Oral Hygiene Instructions Nutritional Counseling For Control Of De ntal Disea Caries Moderate Risk Topical Fluoride Varnish; Therapeutic Ap plication Periodic Oral Evaluation Established Patient Prophylaxis Adult EDR Approval Note Limited Oral Evaluation Problem Focused Intravenous Conscious Sedati on/Analgesia First 3 Intravenous Conscious Sedati on/Analgesia Each Ad Removal Of Impacted Tooth Soft Tissue Removal Of Impacted Tooth Soft Tissue Removal Of Impacted Tooth Soft Tissue Removal Of Impacted Tooth Soft Tissue EDR Approval Note Prophylaxis Adult Bitewings Four Films Panoramic Film Topical Fluoride Varnish; Therapeutic Ap plication Periodic Oral Evaluation Established Patient EDR Approval Note Prophylaxis Adult Bitewings Four Films Topical Fluoride Varnish; Therapeutic Ap plication Periodic Oral Evaluation Established Patient EDR Approval Note Bitewings Four Films Topical Fluoride Varnish; Therapeutic Ap plication Prophylaxis Adult Periodic Oral Evaluation Established Patient EDR Approval Note Bitewings Four Films Topical Fluoride Varnish; Therapeutic Ap plication Periodic Oral Evaluation Established Patient Prophylaxis Adult EDR Approval Note Sealant Per Tooth Sealant Per Tooth Sealant Per Tooth Sealant Per Tooth Sealant Per Tooth Sealant Per Tooth Sealant Per Tooth EDR Approval Note Bitewings Four Films Panoramic Film Intraoral Periapical First Film Intraoral Periapical Each Additional Film Intraoral Periapical Each Additional Film Topical Fluoride Varnish; Therapeutic Ap plication Prophylaxis Adult Comprehensive Oral Evaluatio n New Or Established EDR Approval Note EST-PROB FOC/STR FORWARD COMPREHEN METABOLIC PANEL NEW-EXP PROB FOC/STR FORWARD HEMOGLOBIN A1C [facility] URINALYSIS NONAUTO W/O SCOPE Advance Directives Directive Yes / No Effective Date File Name No Information Encounters Encounter Description Practice Location Reason(s) For Visit Diagnoses Date Provider Providers Copied on Encounter [facility], [id number]- [place], [id number], [place] tel:[phone] [facility] Encounter for dental exam and cleaning w/o abnormal findings b2 0- 8 Levon Kessler. [address] [place], [address], [place]. tel:[phone] Referring Provider: Checo Nicholson, [address] [place], [address]. tel:[phone] [facility], [id number]- [place], [id number], [place] tel:[phone] [facility] Encounter for dental exam and cleaning w/o abnormal findings b-0 6 8 Nura Lee. [address] [place], [address], [place]. tel:[phone] Referring Provider: Rosa Vance, [address] [place], [address]. tel:[phone] [facility], [id number]- [place], [address], [place] tel:[phone] [facility] Encounter for dental exam and cleaning w/o abnormal findings b0 1 8 Levon Kessler. [address] [place], [address], [place]. tel:[phone] Referring Provider: Checo Nicholson, [address] [place], [address]. tel:[phone] [facility], [id number]- [place], [address], [place] tel:[phone] [facility] Encounter for dental exam and cleaning w/o abnormal findings 8 Nura Lee. [address] [place], [address], [place]. tel:[phone] Referring Provider: Rosa Vance, [address] [place], [address]. tel:[phone] [facility], [id number]- [place], [address], [place] tel:[phone] [facility] Encounter for dental exam and cleaning w/o abnormal findings 7 Yazmin Zendejas. [address] [place], [address], [place]. tel:[phone] Referring Provider: Aashish Arce, [address] [place], [address]. tel:[phone] [facility], [id number]- [place], [address], [place] tel:[phone] [facility] Encounter for dental exam and cleaning w/o abnormal findings 6 Yazmin Zendejas. [address] [place], [address], [place]. tel:[phone] Referring Provider: Aashish Arce, [address] [place], [address]. tel:[phone] [facility], [id number]- [place], [place], [address], [place] tel:[phone] [facility] No Information 6 No Information Referring Provider: Charlotte Vance, [address] [place], [address]. tel:[phone] [facility], [id number]- [facility], [place], [place], [address], [place] tel:[phone] [facility] Encounter for dental exam and cleaning w/o abnormal findings 5 Levon Kessler. [address] [place], [address], [place]. tel:[phone] Referring Provider: Charlotte Vance, [address] [place], [address]. tel:[phone] [facility], [id number]- [place], [address], [place] tel:[phone] [facility] No Information 5 No Information [facility], [id number]- [place], [address], [place] tel:[phone] [facility] Dental examination 5 No Information [facility], [id number]- [place], [address], [place] tel:[phone] [facility] Dental examination 4 No Information [facility], [id number]- [place], [address], [place] tel:[phone] [facility] Dental examination Nov- 4 No Information [facility], [address] [id number]- [place], [address], [place] tel:[phone] [facility] Dental examination 3 No Information [facility], [id number]- [facility], [place], [place], [address], [place] tel:[phone] [facility] Dental examination Nov- 3 Nura Fair[place]. [address] [place], [address], [place]. tel:[phone] Referring Provider: Magdi Davis, [address] [place], [address]. tel:[phone] [facility], [address] [id number]- [place], [address], tel:[phone] [facility] Dental examination 3 Nura [place]. [address] [place], [address], [place]. tel:[phone] Referring Provider: Magdi Davis, [address] [place], [address]. tel:[phone] EST-PROB FOC/STR FORWARD [facility], [id number], [address], tel:[phone] Family Medicine F1 No Information 0200 7 No Information NEW-EXP PROB FOC/STR FORWARD [facility], [address] [id number], [address], tel:[phone] Family Medicine F1 No Information 0200 6 No Information Family History Family Member Type Diagnosis Age At Onset Father Problem (finding) Alive and well Mother Problem (finding) Alive and well Payers Payer name Insurance type Covered republican ID Katt zafar(s) D [employer] CI [id number] Social History Type Description Quantity Date Captured Comments Alcohol Use Details No Caffeine Use Details Unknown Tobacco Use Status Current non-smoker 18 Smoking Status Never smoker Non-Smoking Tobacco Use Details : No Details Available : No Details Available Sex Male Chief Complaint And Reason For Visit No Information Reason For Referral Reason For Referral No Information History Of Present Illness Encounter Date Complaint History Of Prese nt Illness No Information Functional Status Date Functional Assessmen t No Information Instructions Date Instruction Additional Infor yas Lifestyle education Related to D ental Examination Lifestyle education Related to D ental Examination Lifestyle education Related to D ental Examination Lifestyle education Related to D ental Examination Lifestyle education Related to D ental Examination Lifestyle education Related to D ental Examination Benefits of flouride Benefits of flouride Assessments Type Assessment Date No Information Patient Care Teams Name Effective Dates (start - stop) Status Members No Information
[2025-03-06] VITALS (72 sets, daily range): BP systolic 84–168; BP diastolic 39–121; PULSE 0–153; RESP 14–39; TEMP 36.1–37.3; O2SAT 93–100; BMI 25.8
--- NOTE | 2025-03-06 11:27 | ED_ITS ---
HPI - General Adult 2 General: Chief complaint: Recheck/Abnormal Lab/Rx Stated complaint: hyperglycemia Time Seen by Provider: 03/06/25 11:23 History of Present Illness: 24-year-old male brought in by EMS from home. He was recently hospitalized for DKA. He was admitted on and discharged home on . Patient provides incoherent with tachypnea blood glucose reading high on Accu-Chek. Unable to get any further history reviewed previous charts Related Data Previous Rx's ?Medication ?Instructions ?Recorded blood-glucose meter (Blood Glucose #1 ea 02/28/25 Monitoring kit) insulin glargine 100 unit/mL (3 20 unit (0.2 mL) SUBCU T QPM #15 mL 02/28/25 mL) subcutaneous pen (Lantus Solostar U-100 Insulin) insulin lispro 100 unit/mL See Protocol SUBCUT QPM #15 mL 02/28/25 subcutaneous pen (Humalog KwikPen (U-100) Insulin) lancets #100 ea 02/28/25 pantoprazole 40 mg tablet,delayed 40 mg PO QAM #30 tab s 02/28/25 release (Protonix) sucralfate 1 gram tablet 1 g PO AC&BEDTIME 30 days #9 0 tabs 02/28/25 Allergies Allergy/AdvReac Type Severity Reaction Status Date / Time No Known Allergies Allergy Verified 03/02/25 09:01 Review of Systems 2 General: Reports: ROS unobtainable due to medical condition and ROS unobtainable due to mental status PFSH ED 2 PFSH: Medical History Diabetes type 1 Surgical History History of appendectomy Social History Smoking and tobacco/nicotine status: current every day tobacco/nicotine user Alcohol intake: never Substance/Drug Use: never Physical Exam 2 Const: ORIENTATION/CONSCIOUSNESS: Yes awake HENMT: COMMON NORMALS: normocephalic, atraumatic and hearing grossly normal bilaterally HEAD & SCALP: normocephalic and atraumatic Resp: EFFORT & INSPECTION: Yes tachypneic and Yes uses accessory muscles Cardio: COMMON NORMALS: regular rhythm and No murmurs present (Cardio) R ATE: tachycardic RHYTHM: regular rhythm GI: COMMON NORMALS: Soft to palpation and No hepatosplenomegaly present A USCULTATION: Yes normoactive bowel sounds PALPATION: Yes Soft to palpation, No Tenderness to palpation present (GI), No Guarding due to palpation present (GI) and Yes No hepatosplenomegaly present Extremity: COMMON NORMALS: normal to inspection, capillary refill normal, no clubbing, cyanosis or edema, no calf tenderness and no pedal edema Skin: COMMON NORMALS: no rashes or lesions noted GENERAL SKIN EXAM: no rashes or lesions noted Course 2 Vital Signs: Vital signs: Vital Signs Temperature 97.8 F 03/08/25 07:14 Pulse Rate 56 L 03/08/25 07:14 Respiratory Rate 16 03/08/25 07:14 Blood Pressure 136/88 03/08/25 07:14 Pulse Oximetry 98 03/08/25 07:14 Oxygen Delivery Me thod Room Air 03/08/25 07:14 MDM - General Adult Medical Decision Making Patient presents in acute DKA with severe acidosis. Patient given IV fluids initiated bicarb drip insulin and bolus and insulin drip. Discussed with hospitalist orders written for admission. Lactic acid ordered by hospitalist is elevated she also has elevated white count but this is all due to his diabetic ketoacidosis which I think is driven by noncompliance. Medical Records I reviewed the patient's medical records. Lab Data 03/08/25 04:55 03/08/25 04:55 Radiology Impressions Chest X-Ray 03/06/25 11:42 IMPRESSION: No acute findings. Laboratory Results WBC 28.65 10^3/uL (3.29-11.43) H 03/06/25 11:30 RBC 4.92 10^6/uL (3.85-5.65) 03/06/25 11:30 Hgb 15.40 g/dL (11.27-16.99) 03/06/25 11:30 Hct 50.6 % (37-53) 03/06/25 11:30 MCV 102.8 fl (82-101) H 03/06/25 11:30 MCH 31.3 pg (27-33) 03/06/25 11:30 MCHC 30.4 g/dL (30-55) 03/06/25 11:30 RDW 13.3 % (12.1-15.1) 03/06/25 11:30 Plt Count 892 10^3/cmm (157-399) H 03/06/25 11:30 MPV 9.6 fL (7.4-10.4) 03/06/25 11:30 Lymph % (Auto) Not Reportable 03/06/25 11:30 [place] % (Auto) Not Reportable 03/06/25 11:30 Lymph # (Auto) Not Reportable 03/06/25 11:30 [place] # (Auto) Not Reportable 03/06/25 11:30 Total Counted 100 (0-100) 03/06/25 11:30 Atypical Lymphs % 0.0 % (0-5) 03/06/25 11:30 Absolute Neutrophils 19.5 10^3/cmm (1.4-6.5) H 03/06/25 11:30 Segmented Neutrophils 60 % 03/06/25 11:30 Band Neutrophils 8.0 % 03/06/25 11:30 Absolute Lymphocytes 7.2 10^3/cmm (1.2-3.4) H 03/06/25 11:30 Lymphocytes (Manual) 25 % 03/06/25 11:30 Monocytes (Manual) 4.0 % 03/06/25 11:30 Absolute Monocytes 1.1 10^3/cmm (0.1-0.6) H 03/06/25 11:30 Eosinophils (Manual) 1 % 03/06/25 11:30 Absolute Eosinophils 0.3 10^3/cmm (0.0-0.7) 03/06/25 11:30 Basophils (Manual) 0.0 % 03/06/25 11:30 Absolute Basophils 0.0 10^3/cmm (0.0-0.2) 03/06/25 11:30 Metamyelocytes 1.0 % 03/06/25 11:30 Myelocytes 1.0 % 03/06/25 11:30 Platelet Estimate Increased (Normal) 03/06/25 11:30 Specimen Type Arterial 03/06/25 11:25 Sample Site Radial, left 03/06/25 11:25 ABG pH 6.94 (7.35-7.45) L* 03/06/25 11:25 ABG pCO2 11.2 mmHg (35-45) L* 03/06/25 11:25 ABG pO2 145.0 mmHg (80.0-100.0) H 03/06/25 11:25 ABG PO2/FiO2 Ratio 690 03/06/25 11:25 ABG HCO3 2.4 mmol/L (22-26) L 03/06/25 11:25 ABG O2 Saturation 97.9 03/06/25 11:25 ABG Base Excess -28.3 mmol/L (-2.0-2.0) L 03/06/25 11:25 Gerardo Test Pos 03/06/25 11:25 A-a O2 Gradient Not Reportable 03/06/25 11:25 Hematocrit 45.7 % (42-52) 03/06/25 11:25 Hgb O2 Saturation 95.3 % (95-100) 03/06/25 11:25 Carboxyhemoglobin 1.4 %THgb (0.4-20.1) 03/06/25 11:25 Methemoglobin 1.3 % (0.4-1.5) 03/06/25 11:25 Total Hemoglobin 14.9 g/dL (14-18) 03/06/25 11:25 Sodium 134.0 mmol/L (131-143) 03/06/25 11:25 Potassium 5.7 mmol/L (3.5-5.0) H 03/06/25 11:25 Glucose 1054.0 mg/dL (70-115) H 03/06/25 11:25 Ionized Calcium 1.3 mmol/L (1.1-1.4) 03/06/25 11:25 O2 Delivery Device Room air 03/06/25 11:25 FiO2 21.0 % 03/06/25 11:25 Wood Coater ID [id number] 03/06/25 11:25 Sodium 132 mmol/L (136-145) L 03/06/25 11:30 Potassium 5.5 mmol/L (3.5-5.1) H 03/06/25 11:30 Chloride 82 mmol/L (98-107) L 03/06/25 11:30 Carbon Dioxide 4 mmol/L (22-29) L* 03/06/25 11:30 Anion Gap 51.5 (5-19) H 03/06/25 11:30 BUN 31 mg/dL (6-20) H 03/06/25 11:30 Creatinine 2.0 mg/dL (0.7-1.2) H 03/06/25 11:30 GFR Calculation 40.9 mL/min (90-130) L 03/06/25 11:30 Glucose 1117 mg/dL (65-115) H* 03/06/25 11:30 POC Glucose > 600 mg/dL (70-110) H* 03/06/25 12:20 Calculated Osmolality 337 mOsm/kg (285-295) H 03/06/25 11:30 Lactic Acid 4.6 mmol/L (0.5-2.2) H* 03/06/25 11:30 Calcium 9.7 mg/dL (8.5-10.5) 03/06/25 11:30 Phosphorus 8.4 mg/dL (2.5-4.5) H* 03/06/25 11:30 Magnesium 3.0 mg/dL (1.7-2.3) H 03/06/25 11:30 Total Bilirubin 0.2 mg/dL (0.15-1.2) 03/06/25 11:30 AST 20 U/L (0-40) 03/06/25 11:30 ALT 31 U/L (0-41) 03/06/25 11:30 Alkaline Phosphatase 220 U/L (40-130) H 03/06/25 11:30 Total Protein 7.6 g/dL (6.6-8.7) 03/06/25 11:30 Albumin 4.2 g/dL (3.5-5.2) 03/06/25 11:30 Globulin 3.4 g/dL (1.3-4.6) 03/06/25 11:30 Serum Ketones Positive (Negative) H 03/06/25 11:30 All radiology interpretation(s) finalized by discharge Critical Care Time 2 Critical Care Time: Critical Care Time: Yes Total Critical Care Time: 40 Attestation: The high probability of a clinically significant, sudden or life threatening deterioration of the patient's cardiovascular respiratory endocrine renal system(s) required my full and direct attention, intervention and personal management. The critical care time is as shown. This time is in addition to time spent performing any reported procedures but includes the following: [x] Data and vital sign review and interpretation [x] Patient assessment, examination and intervention [x] Documentation [x] Medication orders and management Discharge Plan Discharge Patient Disposition: Placed in Observation Admit Provider: Karlee Lopez Clinical Impression: Diabetic ketoacidosis, WILLIAM (acute kidney injury) Coding Level of Care Code ED Digital Communications Manager for Kimberlee Monsalve
[2025-03-06] MEDS: insulin regular-human 100 units/1 mL 10 UNIT IVP (11:36)
[2025-03-06 11:38] LABS: ABG PCO2 11.2 mmHg (35-45); ABG PH Result 6.94 (7.35-7.45); Arterial Blood Gas Hematocrit 45.7 % (42-52); Blood Gas Allen Test Pos; Blood Gas Operator Identificat AMH; Blood Gas Sample Site Radial, left; Blood Gas Sample Type Arterial; Carboxyhemoglobin 1.4 %THgb (0.4-20.1); Glucose Level-ABG 1054.0 mg/dL (70-115); HCO3 ABG 2.4 mmol/L (22-26); Ionized Calcium Level - ABG 1.3 mmol/L (1.1-1.4); Methemoglobin 1.3 % (0.4-1.5); Oxygen Saturation ABG 97.9; PO2 ABG 145.0 mmHg (80.0-100.0); PO2 FiO2 Ratio Arterial Blood 690; Potassium Level - ABG 5.7 mmol/L (3.5-5.0); Sodium Level - ABG 134.0 mmol/L (131-143)
--- NOTE | 2025-03-06 11:42 | XRR_ITS ---
PROCEDURE INFORMATION: Exam: XR Chest Exam date and time: 03/06/2025 11:56 AM Age: 24 years old Clinical indication: Cough; Additional info: Dyspnea/cough, dka TECHNIQUE: Imaging protocol: Radiologic exam of the chest. Views: 1 view. COMPARISON: CR (CHEST, ) 03/02/2025 1:41 AM FINDINGS: Lungs: Unremarkable. No consolidation. Pleural spaces: Unremarkable. No pleural effusion. No pneumothorax. Heart/Mediastinum: Unremarkable. No cardiomegaly. Bones/joints: Unremarkable. XR/XR chest 1V portable [id number] IMPRESSION: No acute findings.
--- NOTE | 2025-03-06 11:50 | ECG_ITS ---
[facility] 2025-[facility]06 Pat Name: Tim Das Department: Room: Gender: Male Signal Helper: : 2000 Requested By: Freddie Vance Order Number: [id number] Reading MD: Measurements Intervals [place] Rate: 121 P: 42 ID: [id number] QRS: -28 QRSD: 97 T: 49 QT: 297 QTc: 422 Interpretive Statements SINUS TACHYCARDIA BORDERLINE LEFT AXIS DEVIATION [QRS AXIS < -20] ABNORMAL RHYTHM ECG Compared to ECG 02/28/2025 03:10:59 Sinus bradycardia no longer present Sinus arrhythmia no longer present Short ID interval no longer present [email or web address]
[2025-03-06 11:56] LABS: Hematocrit 50.6 % (37-53); Hemoglobin 15.40 g/dL (11.27-16.99); Mean Corpuscular HGB Conc 30.4 g/dL (30-55); Mean Corpuscular Hemoglobin 31.3 pg (27-33); Mean Corpuscular Volume 102.8 fl (82-101); Platelet Count 892 10^3/cmm (157-399); Red Blood Count 4.92 10^6/uL (3.85-5.65); White Blood Count 28.65 10^3/uL (3.29-11.43)
[2025-03-06 12:04] LABS: Ketone (Acetest) Serum Positive (Negative)
[2025-03-06 12:12] LABS: Alanine Aminotransferase 31 U/L (0-41); Albumin Level 4.2 g/dL (3.5-5.2); Alkaline Phosphatase 220 U/L (40-130); Aspartate Amino Transferase 20 U/L (0-40); Blood Urea Nitrogen 31 mg/dL (6-20); Calcium 9.7 mg/dL (8.5-10.5); Chloride 82 mmol/L (98-107); Creatinine Clr Calc Pharmacy 59.2343; Globulin 3.4 g/dL (1.3-4.6); Potassium 5.5 mmol/L (3.5-5.1); Sodium 132 mmol/L (136-145); Total Protein 7.6 g/dL (6.6-8.7)
[2025-03-06 12:15] LABS: Anion Gap 51.5 (5-19)
[2025-03-06 12:16] LABS: Carbon Dioxide 4 mmol/L (22-29)
--- NOTE | 2025-03-06 12:20 | P.HP_ITS ---
Providers/Chief Complaint 2 Primary Care Provider: Katherine Ulloa NP Chief Complaint: hyperglycemia History of Present Illness Tim Das is a 24 year old male with history of type 1 diabetes mellitus who takes Basaglar 20 units at home along with short acting insulin throughout the day per sliding scale presented to the hospital today with complaint of nausea vomiting. He is found to be in DKA. He has stopped following with endocrinology after losing health insurance. Patient was here with DKA about 9 days ago on 02/25 2025 as well. White count noted to be 28,000 with 8% bands, ABG shows 6.94/11 point 2/145/2.4. Potassium 5.5, bicarb 4, anion gap 51.5, creatinine 2.0. Glucose on BMP 1117. Chest x-ray appears to be within normal limits. Interpreted by myself. Final report pending. EKG shows sinus tachycardia. Patient complains of pain he is not able to provide any kind of history at this time. He is constantly moving in bed. We have to use soft restraints at this time. He continues to pull out his Inman. He appears very restless. I have asked the nurse to give him 4 of morphine and 2 A of bicarb. Track patel also noted on patient's arms. It was difficult to place IV per nursing staff Medications/Allergies Home Medications ?Medication ?Instructions ?Recorded ?Confirmed ?Last Taken ?Type blood-glucose meter (Blood Glucose #1 ea 02/28/25 0712/26 Unknown Rx Monitoring kit) insulin glargine 100 unit/mL (3 20 unit (0.2 mL) SUBCU T QPM #15 mL 02/28/25 03/06/25 Unknown Rx mL) subcutaneous pen (Lantus Solostar U-100 Insulin) insulin lispro 100 unit/mL See Protocol SUBCUT QPM #15 mL 02/28/25 03/06/25 Unknown Rx subcutaneous pen (Humalog KwikPen (U-100) Insulin) lancets #100 ea 02/28/25 03/06/25 Un known Rx pantoprazole 40 mg tablet,delayed 40 mg PO QAM #30 tab s 02/28/25 03/06/25 Unknown Rx release (Protonix) sucralfate 1 gram tablet 1 g PO AC&BEDTIME 30 days #9 0 tabs 02/28/25 03/06/25 Unknown Rx Allergies Allergy/AdvReac Type Severity Reaction Status Date / Time No Known Allergies Allergy Verified 03/02/25 09:01 PFSH Acute 2 PFSH: Medical History Diabetes type 1 Surgical History History of appendectomy Social History Smoking and tobacco/nicotine status: current every day tobacco/nicotine user Alcohol intake: never Substance/Drug Use: never Vitals/I&O/Wt Last Vital Signs Temp 97.0 F L 03/06/25 11:22 Pulse 131 H 03/06/25 11:22 Resp 35 H 03/06/25 11:22 BP 147/85 03/06/25 11:22 Pulse Ox 98 03/06/25 11:22 O2 Del Method Room Air 03/06/25 11:22 Weight last 48 hrs Weight 79.379 kg Physical Exam 2 Narrative: General: Altered mental status patient seen laying in bed, tachycardia. appears dehydrated, very restless. HEENT: Normocephalic, atraumatic, EOMI, slightly tachypneic., Able to protect airway at this time. Cardio: Sinus tachycardia, normal S1-S2, Respiratory: Mainly clear to auscultation, difficult lung exam since patient constantly moving in bed and quite restless on soft restraints at this time. GI: Abdomen soft, nontender, nondistended, bowel sounds + Behavior: Appropriate and cooperative Extremities: no edema, some track patel noted on left arm. Patient still wearing jeans. Very difficult physical exam. He is not cooperative at this time. Data 03/06/25 11:30 03/06/25 12:49 A&P Assessment and plan (1) Diabetic ketoacidosis: (2) Diabetes type 1: (3) WILLIAM (acute kidney injury): (4) Dehydration: (5) Sinus tachycardia: (6) Tachypnea: (7) High anion gap metabolic acidosis: (8) Severe dehydration: (9) Hyperkalemia: (10) GERD (gastroesophageal reflux disease): (11) Leukocytosis: (12) Bandemia: (13) Metabolic encephalopathy: Plan #Diabetic ketoacidosis #Type 1 diabetes #Severe dehydration #Anion gap metabolic acidosis #Acute kidney injury #Sinus tachycardia #GERD #Leukocytosis with bandemia #Mild hyperkalemia #Hemoconcentrated #Metabolic encephalopathy ? Patient on Lantus 20 at home with sliding scale. On Protonix and sucralfate at home that was started at previous admission secondary to GERD. ? Patient does have bandemia with left shift, leukocytosis 28,000 most likely stress response leukemoid reaction. Watch off of antibiotics at this time. ? Check blood cultures, ? Patient mildly hyperkalemic 5.5 which is normal in DKA setting. Whole body potassium lower than that. No intervention needed at this time ? Continue on IV fluids normal saline 200 cc/h ? Patient received 4 L normal saline bolus in ER ? Bicarb drip to be started at 100 cc/h ? Continue on insulin drip. ? Check BMP every 4 hours ? Check magnesium phosphorus ? Add dextrose to fluids once blood sugar lower than 250. ? Anion gap high secondary to diabetic ketoacidosis, ketones positive ? Patient is tachypneic with sinus tachycardia this should resolve as DKA resolves. No need of intubation at this time. He is able to protect his airway. Tachypnea secondary to compensation from acidosis. ? EKG without any acute ischemic changes. ? Chest x-ray appears to be within normal limits, I interpreted. ? WILLIAM most likely from prerenal cause secondary to severe dehydration. Creatinine 2.0 today. I expect this to improve with IV fluids. - Patient unable to provide history. Unsure at this time if he missed his insulin or what the cause of DKA may be. He was recently given a prescription at discharge 9 days ago from this hospital. He cannot provide any history. We will check blood cultures urine culture sputum culture Gram stain placed on broad-spectrum antibiotics vancomycin and Zosyn at this time. ? Check urine drug screen. ? Place Inmna catheter. Continue soft restraints till patient more cooperative ? Able to protect airway at this time ? Order 4 mg of morphine for pain ? Will order 2 more amps of bicarb. - Discussed with ER doctor and patient's nurse in the ER. Full code DVT prophylaxis: Lovenox 40 daily PDMP PDMP Reviewed: Not Reviewed Attestations 2 Medical Necessity Statement*: DKA Critical Care Time: The high probability of a clinically significant, sudden or life threatening deterioration of the patient's [endocrine system, respiratory, cardiovascular,] system(s) required my full and direct attention, intervention and personal management. The critical care time is as shown. This time is in addition to time spent performing any reported procedures but includes the following: [x] Data and vital sign review and interpretation [x] Patient assessment, examination and intervention [x] Documentation [x] Medication orders and management Critical Care Time (min): 55 Coding Level of Care Code Acute Code for [facility] Fwd Diagnoses Diabetic ketoacidosis E11.10 Diabetes type 1 E10.9 WILLIAM (acute kidney injury) N17.9 Dehydration E86.0 Sinus tachycardia R00.0 Tachypnea R06.82 High anion gap metabolic acidosis E87.29 Severe dehydration E86.0 Hyperkalemia E87.5 GERD (gastroesophageal reflux disease) K21.9 Leukocytosis D72.829 Bandemia D72.825 Metabolic encephalopathy G93.41
[2025-03-06 12:21] LABS: Osmolality Calculated 337 mOsm/kg (285-295)
[2025-03-06] MEDS: INSULIN REGULAR IN 0.9 % NACL 100 UNIT/100 ML BAG 7.5 UNIT IV (12:25)
[2025-03-06 12:28] LABS: Glucose 1117 mg/dL (65-115)
[2025-03-06 12:36] LABS: Absolute Segmented Neutrophil 17.2 10/cmm (1.6-7.1); Atypical Lymphs 0.0 % (0-5); Band Neutrophils Absolute 2.3 10^3/cmm (0.0-1.2); Slide Review Slide Review Perform; Total Cells Counted 100 (0-100)
[2025-03-06] MEDS: ondansetron 2 mg/ML SDV 2 mL 4 MG IVP (13:08)
[2025-03-06 13:10] LABS: Magnesium 3.0 mg/dL (1.7-2.3)
[2025-03-06 13:11] LABS: Blood Urea Nitrogen 30 mg/dL (6-20); Calcium 8.8 mg/dL (8.5-10.5); Chloride 92 mmol/L (98-107); Creatinine Clr Calc Pharmacy 65.8158; Sodium 136 mmol/L (136-145)
[2025-03-06 13:15] LABS: Carbon Dioxide 2 mmol/L (22-29)
[2025-03-06 13:19] LABS: Osmolality Calculated 335 mOsm/kg (285-295)
[2025-03-06 13:31] LABS: Anion Gap 47.0 (5-19); Potassium 5.0 mmol/L (3.5-5.1)
[2025-03-06 13:33] LABS: Glucose 945 mg/dL (65-115)
[2025-03-06 13:34] LABS: Lactic Sepsis W/Reflex 4.6 mmol/L (0.5-2.2)
--- NOTE | 2025-03-06 13:36 | PHA.VACGOAL ---
Vancomycin Goal - Goal Vancomycin Goal:: 15-20 mg/L Vancomycin Indication:: Other - Therapy Current therapy:: Pip/Tazo Day of therpy:: Day 1 of [] . Actual body weight (kg): 175 lb - Data Labs: WBC 28.65 10^3/uL (3.29-11.43) H 03/06/25 11:30 RBC 4.92 10^6/uL (3.85-5.65) 03/06/25 11:30 Hgb 15.40 g/dL (11.27-16.99) 03/06/25 11:30 Hct 50.6 % (37-53) 03/06/25 11:30 MCV 102.8 fl (82-101) H 03/06/25 11:30 MCH 31.3 pg (27-33) 03/06/25 11:30 MCHC 30.4 g/dL (30-55) 03/06/25 11:30 RDW 13.3 % (12.1-15.1) 03/06/25 11:30 Sodium 136 mmol/L (136-145) 03/06/25 12:49 Potassium 5.0 mmol/L (3.5-5.1) 03/06/25 12:49 Chloride 92 mmol/L (98-107) L 03/06/25 12:49 Carbon Dioxide 2 mmol/L (22-29) L* 03/06/25 12:49 Anion Gap 47.0 (5-19) H 03/06/25 12:49 BUN 30 mg/dL (6-20) H 03/06/25 12:49 Creatinine 1.8 mg/dL (0.7-1.2) H 03/06/25 12:49 GFR Calculation 46.2 mL/min (90-130) L 03/06/25 12:49 Last dialysis session:: N/A Treatment plan:: new consult Regimen:: INITIAL LOADING DOSE OF 2000 MG X1 PER DOSING PROTOCOL. INITIAL MAINTENANCE DOSE OF 1000 MG Q12H Follow up:: WILL CONTINUE TO MONITOR AND FOLLOW UP DAILY.
[2025-03-06] MEDS: insulin regular-human 100 units/1 mL 4 UNIT IVP (13:45)
[2025-03-06] MEDS: piperacillin-tazobactam 3.375 GM in sodium chloride 0.9% (plus) 50 ML IV ×2 (14:22→22:53)
[2025-03-06] MEDS: INSULIN REGULAR IN 0.9 % NACL 100 UNIT/100 ML BAG 16.5 UNIT IV (14:53)
[2025-03-06 14:59] LABS: Reflex Lactate Order REFLEX LACTIC ORDERD
[2025-03-06 15:04] LABS: Glucose Urine UA 3+ (Normal); Nitrate Urine Negative (Negative); Specific Gravity, Urine 1.021 (1.005-1.030)
[2025-03-06 15:09] LABS: Add Urine Microscopic? YES
[2025-03-06 15:11] LABS: PCP Screen Urine Negative (Negative)
[2025-03-06 15:17] LABS: UA Slide Review UA Slide Review Perf
[2025-03-06 15:58] LABS: Anion Gap 42.1 (5-19); Blood Urea Nitrogen 27 mg/dL (6-20); Calcium 8.7 mg/dL (8.5-10.5); Chloride 99 mmol/L (98-107); Creatinine Clr Calc Pharmacy 69.6874; Osmolality Calculated 329 mOsm/kg (285-295); Potassium 4.1 mmol/L (3.5-5.1); Sodium 142 mmol/L (136-145)
[2025-03-06 16:08] LABS: Carbon Dioxide 5 mmol/L (22-29); Glucose 632 mg/dL (65-115)
[2025-03-06 16:17] LABS: Lactic Acid level (Lactate) 5.6 mmol/L (0.5-2.2)
[2025-03-06] MEDS: INSULIN REGULAR IN 0.9 % NACL 100 UNIT/100 ML BAG 20 UNIT IV (17:42)
[2025-03-06] MEDS: dextrose 5%-sod chloride 0.45% 1,000 ML 125 ML IV (18:51)
[2025-03-06] MEDS: morphine 4 mg/mL SDV 1 mL IVP (20:05)
[2025-03-06] MEDS: LORazepam 1 MG/0.5 ML injection 0.5 MG IVP ×2 (20:42→20:48)
[2025-03-06] MEDS: dexmedeTOMIDine 0.9 % NaCL 400 MCG/100 ML PREMIX IV (20:43)
[2025-03-06 21:21] LABS: Anion Gap 23.5 (5-19); Blood Urea Nitrogen 21 mg/dL (6-20); Calcium 8.3 mg/dL (8.5-10.5); Carbon Dioxide 19 mmol/L (22-29); Chloride 111 mmol/L (98-107); Creatinine Clr Calc Pharmacy 84.6204; Glucose 128 mg/dL (65-115); Osmolality Calculated 315 mOsm/kg (285-295); Potassium 3.5 mmol/L (3.5-5.1); Sodium 150 mmol/L (136-145)
[2025-03-07] VITALS (63 sets, daily range): BP systolic 93–146; BP diastolic 52–104; PULSE 58–94; RESP 1–25; TEMP 36.6–36.9; O2SAT 95–100; BMI 25.9
[2025-03-07 00:23] LABS: Lactate (Lactic Acid level) 1.4 mmol/L (0.5-2.2)
[2025-03-07 00:29] LABS: Anion Gap 23.5 (5-19); Blood Urea Nitrogen 20 mg/dL (6-20); Calcium 7.6 mg/dL (8.5-10.5); Carbon Dioxide 16 mmol/L (22-29); Chloride 111 mmol/L (98-107); Creatinine Clr Calc Pharmacy 98.7238; Glucose 265 mg/dL (65-115); Osmolality Calculated 316 mOsm/kg (285-295); Potassium 3.5 mmol/L (3.5-5.1); Sodium 147 mmol/L (136-145)
[2025-03-07] MEDS: morphine 4 mg/mL SDV 1 mL IVP ×2 (01:13→18:50)
[2025-03-07] MEDS: VANCOMYCIN ADD-Vantage 1,000 MG in 0.9% NaCl ADD-Vantage 250 ML 250 MG IV ×2 (01:17→14:01)
--- NOTE | 2025-03-07 02:30 | PC.NURSE ---
Patient was screaming and thrashing in the bed, would not follow commands, disoriented and not answering questions. Patient was pulling at hernadnez catheter even with the use of medical restraints. Dr. Shipman was made aware of the situation and gave telephone orders for 4mg morphine IVP q4h PRN. Administration of morphine was unsuccessful, patient continued to scream and thrash in the bed, not redirectable. Dr. Shipman at this time gave telephone orders for 0.5mg ativan IVP ONCE and to begin a precedex drip. After administration of IVP ativan patient became hypotensive and orders for a 1L NS bolus was given, after bolus BP slightly improved.
--- NOTE | 2025-03-07 02:41 | PC.NURSE ---
Agitation: Patient again became agitated and pulling at hernandez catheter while screaming, hernandez was removed per Dr. Shipman.
[2025-03-07] MEDS: dextrose 5%-sod chloride 0.45% 1,000 ML 125 ML IV ×2 (02:44→10:54)
--- NOTE | 2025-03-07 03:39 | PC.NURSE ---
Resp. panel: Patient had intermittent cough, Dr. Shipman gave telephone orders for a respiratory panel.
[2025-03-07 04:30] LABS: ABG PCO2 29.4 mmHg (35-45); ABG PH Result 7.51 (7.35-7.45); Arterial Blood Gas Hematocrit 41.2 % (42-52); Blood Gas Operator Identificat SAM; Blood Gas Sample Site Brachial, right; Blood Gas Sample Type Arterial; Carboxyhemoglobin 0.9 %THgb (0.4-20.1); Glucose Level-ABG 161.0 mg/dL (70-115); HCO3 ABG 23.4 mmol/L (22-26); Ionized Calcium Level - ABG 1.1 mmol/L (1.1-1.4); Methemoglobin 0.9 % (0.4-1.5); Oxygen Saturation ABG 97.9; PO2 ABG 125.0 mmHg (80.0-100.0); PO2 FiO2 Ratio Arterial Blood 595; Potassium Level - ABG 3.4 mmol/L (3.5-5.0); Sodium Level - ABG 150.0 mmol/L (131-143)
[2025-03-07 04:34] LABS: Coronavirus 229E,HKU1,NL63,OC4 Not Detected (NOT DETECT); Parainfluenza Virus Type 1 Not Detected (NOT DETECT); Parainfluenza Virus Type 2 Not Detected (NOT DETECT); Parainfluenza Virus Type 3 Not Detected (NOT DETECT); Parainfluenza Virus Type 4 Not Detected (NOT DETECT); SARS-COV-2 Not Detected (NOT DETECT)
[2025-03-07 04:39] LABS: Alveolar-Arterial Oxygen Gradi 5.0 mmHg (5-10)
[2025-03-07 04:43] LABS: Hematocrit 35.5 % (37-53); Hemoglobin 12.40 g/dL (11.27-16.99); Mean Corpuscular HGB Conc 34.9 g/dL (30-55); Mean Corpuscular Hemoglobin 31.1 pg (27-33); Mean Corpuscular Volume 89.0 fl (82-101); Nucleated Red Blood Cells % 0 %; Platelet Count 417 10^3/cmm (157-399); Red Blood Count 3.99 10^6/uL (3.85-5.65); White Blood Count 20.98 10^3/uL (3.29-11.43)
[2025-03-07 05:01] LABS: Alanine Aminotransferase 20 U/L (0-41); Albumin Level 3.1 g/dL (3.5-5.2); Alkaline Phosphatase 109 U/L (40-130); Anion Gap 16.5 (5-19); Aspartate Amino Transferase 14 U/L (0-40); Blood Urea Nitrogen 16 mg/dL (6-20); Calcium 7.7 mg/dL (8.5-10.5); Carbon Dioxide 23 mmol/L (22-29); Chloride 110 mmol/L (98-107); Creatinine Clr Calc Pharmacy 98.7238; Globulin 2.2 g/dL (1.3-4.6); Glucose 196 mg/dL (65-115); Magnesium 2.1 mg/dL (1.7-2.3); Osmolality Calculated 309 mOsm/kg (285-295); Potassium 3.5 mmol/L (3.5-5.1); Sodium 146 mmol/L (136-145); Total Protein 5.3 g/dL (6.6-8.7)
[2025-03-07] MEDS: piperacillin-tazobactam 3.375 GM in sodium chloride 0.9% (plus) 50 ML IV ×3 (05:44→22:15)
[2025-03-07] MEDS: ondansetron 2 mg/ML SDV 2 mL 4 MG IVP (07:30)
--- NOTE | 2025-03-07 07:33 | PC.NURSE ---
pt coughing and retching will not answer any questions per staff, chipfran given
[2025-03-07] MEDS: pantoprazole 40 mg SDV IVP (09:04)
[2025-03-07 09:55] LABS: Creatinine Clr Calc Pharmacy 237.0917
[2025-03-07 10:16] LABS: Blood Urea Nitrogen 15 mg/dL (6-20); Calcium 7.3 mg/dL (8.5-10.5); Carbon Dioxide 17 mmol/L (22-29); Chloride 110 mmol/L (98-107); Glucose 256 mg/dL (65-115); Osmolality Calculated 316 mOsm/kg (285-295); Sodium 148 mmol/L (136-145)
--- NOTE | 2025-03-07 10:23 | PC.NURSE ---
voided per urinal very verbal and moaning with pain to void , had large loose bm incontinent ebony care done and linen change done
[2025-03-07 10:30] LABS: Anion Gap 24.4 (5-19); Potassium 3.4 mmol/L (3.5-5.1)
[2025-03-07] MEDS: lidocaine 1% 5 ML in potassium chloride premix 100 ML 26.25 ML IV (10:49)
--- NOTE | 2025-03-07 11:05 | PC.NURSE ---
Dr Lopez here exam pt at this time , aware of K level ordered krider to be given started and insulin gtt infusing and continue bicarb
--- NOTE | 2025-03-07 12:17 | P.PN_ITS ---
Subjective 2 Subjective: seen today pt wbc 20K urine drug screen neg Patient is coherent able to provide a history at this time. Will talk to him regarding what happened at home and that he misses insulin. Patient states that he does not know what happened. He states he sleeps in a trailer at a at someone's property. He is not sure how he was brought to the hospital. He is not sure what happened the last few days. Unable to tell me if he was sick or not. I asked him if he feels better compared to yesterday. He states he does not know how he was feeling yesterday so is unable to tell me how he was feeling so therefore has no comparison. Vitals/I&O/Wt Last Vital Signs Temp 98.2 F 03/07/25 04:30 Pulse 73 03/07/25 10:00 Resp 14 03/07/25 10:00 BP 97/74 03/07/25 10:00 Pulse Ox 99 03/07/25 10:00 O2 Del Method Room Air 03/07/25 08:57 03/06/25 03/07/25 03/07/25 22:59 06:59 14:59 Intake Total 1888.854 / 3896.979 2314.717 / 6211.696 2220.366 / 2220.366 Output Total 950 / 2300 450 / 2750 350 / 350 Balance 938.854 / 4745.167 6793.717 / 3461.696 1870.366 / 1870.366 Weight last 48 hrs Weight 79.5 kg Weight 79.379 kg Weight 79.379 kg Physical Exam 2 Narrative: General: AO x3, but unable to remember events from yesterday HEENT: Normocephalic, atraumatic, EOMI, Cardio:RRR, normal S1-S2, Respiratory: cta b/l, no wheezes or ronchi GI: Abdomen soft, nontender, non distended, bowel sounds + Extremities: no edema, Urinary Catheter Management: Inman: Cath Placed During This Visit: yes, but has since been removed by the nurse Reason for Continuing Indwelling Catheter: Decision to DC Catheter Urinary Catheter Date of Insertion: 03/06/25 Date Urinary Catheter Removed: 03/06/25 Time Urinary Catheter Discontinued: 22:00 Data 03/07/25 04:37 03/07/25 09:00 Micro: Microbiology 03/06/25 14:30 Urine Culture - Preliminary Urine Catheterized 03/06/25 14:25 Blood Culture - Preliminary Blood SPECIMEN COLLECTED 03/06/25 14:27 Blood Culture - Preliminary Blood SPECIMEN COLLECTED A&P Assessment and plan (1) Diabetic ketoacidosis: (2) Diabetes type 1: (3) WILLIAM (acute kidney injury): (4) Dehydration: (5) Sinus tachycardia: (6) Tachypnea: (7) High anion gap metabolic acidosis: (8) Severe dehydration: (9) Hyperkalemia: (10) GERD (gastroesophageal reflux disease): (11) Leukocytosis: (12) Bandemia: (13) Metabolic encephalopathy: Plan #Diabetic ketoacidosis #Type 1 diabetes #Severe dehydration #Anion gap metabolic acidosis #Acute kidney injury #Sinus tachycardia #GERD #Leukocytosis with bandemia #Mild hyperkalemia #Hemoconcentrated #Metabolic encephalopathy ? Patient on Lantus 20 at home with sliding scale. On Protonix and sucralfate at home that was started at previous admission secondary to GERD. ? Patient does have bandemia with left shift, leukocytosis 28,000 most likely stress response leukemoid reaction. Watch off of antibiotics at this time. ? Check blood cultures, ? Patient mildly hyperkalemic 5.5 which is normal in DKA setting. Whole body potassium lower than that. No intervention needed at this time ? Continue on IV fluids normal saline 200 cc/h ? Patient received 4 L normal saline bolus in ER ? Bicarb drip to be started at 100 cc/h ? Continue on insulin drip. ? Check BMP every 4 hours ? Check magnesium phosphorus ? Add dextrose to fluids once blood sugar lower than 250. ? Anion gap high secondary to diabetic ketoacidosis, ketones positive ? Patient is tachypneic with sinus tachycardia this should resolve as DKA resolves. No need of intubation at this time. He is able to protect his airway. Tachypnea secondary to compensation from acidosis. ? EKG without any acute ischemic changes. ? Chest x-ray appears to be within normal limits, I interpreted. ? WILLIAM most likely from prerenal cause secondary to severe dehydration. Creatinine 2.0 today. I expect this to improve with IV fluids. - Patient unable to provide history. Unsure at this time if he missed his insulin or what the cause of DKA may be. He was recently given a prescription at discharge 9 days ago from this hospital. He cannot provide any history. We will check blood cultures urine culture sputum culture Gram stain placed on broad-spectrum antibiotics vancomycin and Zosyn at this time. ? Check urine drug screen. ? Place Inman catheter. Continue soft restraints till patient more cooperative ? Able to protect airway at this time ? Order 4 mg of morphine for pain ? Will order 2 more amps of bicarb. - Discussed with ER doctor and patient's nurse in the ER. Full code DVT prophylaxis: Lovenox 40 daily 03/07/2025 Switch fluids to D5 half-normal saline. Anion gap is 24. Continue insulin drip per protocol. Continue bicarb drip till bicarb is above 20 and then stop. Discussed with nursing staff. Continue to replete phosphorus and magnesium. Patient unable to give me a history. We are unsure what precipitated the DKA. He states that he has been taking his medications as far as he is aware. Blood cultures are pending. Leukocytosis 20,000. Check CT chest abdomen pelvis. Blood cultures pending today. Urine culture, sputum culture Gram stain pending. PDMP PDMP Reviewed: Not Reviewed Attestations 2 Medical Necessity Statement*: DKA Critical Care Time: The high probability of a clinically significant, sudden or life threatening deterioration of the patient's [endocrine system, respiratory, cardiovascular,] system(s) required my full and direct attention, intervention and personal management. The critical care time is as shown. This time is in addition to time spent performing any reported procedures but includes the following: [x] Data and vital sign review and interpretation [x] Patient assessment, examination and intervention [x] Documentation [x] Medication orders and management Critical Care Time (min): 55 Diagnoses Diabetic ketoacidosis E11.10 Diabetes type 1 E10.9 WILLIAM (acute kidney injury) N17.9 Dehydration E86.0 Sinus tachycardia R00.0 Tachypnea R06.82 High anion gap metabolic acidosis E87.29 Severe dehydration E86.0 Hyperkalemia E87.5 GERD (gastroesophageal reflux disease) K21.9 Leukocytosis D72.829 Bandemia D72.825 Metabolic encephalopathy G93.41
[2025-03-07 13:37] LABS: Anion Gap 16.4 (5-19); Blood Urea Nitrogen 15 mg/dL (6-20); Calcium 8.0 mg/dL (8.5-10.5); Carbon Dioxide 24 mmol/L (22-29); Chloride 112 mmol/L (98-107); Creatinine Clr Calc Pharmacy 98.7882; Glucose 162 mg/dL (65-115); Osmolality Calculated 312 mOsm/kg (285-295); Potassium 3.4 mmol/L (3.5-5.1); Sodium 149 mmol/L (136-145)
[2025-03-07] MEDS: insulin glargine 100 units/1 mL 20 UNIT SUBCUT (14:14)
[2025-03-07 16:48] LABS: Anion Gap 18.7 (5-19); Blood Urea Nitrogen 13 mg/dL (6-20); Calcium 7.6 mg/dL (8.5-10.5); Carbon Dioxide 23 mmol/L (22-29); Chloride 102 mmol/L (98-107); Creatinine Clr Calc Pharmacy 98.7882; Glucose 348 mg/dL (65-115); Osmolality Calculated 304 mOsm/kg (285-295); Potassium 3.7 mmol/L (3.5-5.1); Sodium 140 mmol/L (136-145)
--- NOTE | 2025-03-07 18:53 | PC.NURSE ---
pt requesting pain medication that is stronger ms given as one time after talking to Dr Lopez
[2025-03-07 20:48] LABS: Anion Gap 22.7 (5-19); Blood Urea Nitrogen 13 mg/dL (6-20); Calcium 7.9 mg/dL (8.5-10.5); Carbon Dioxide 18 mmol/L (22-29); Chloride 103 mmol/L (98-107); Creatinine Clr Calc Pharmacy 91.1891; Glucose 230 mg/dL (65-115); Osmolality Calculated 297 mOsm/kg (285-295); Potassium 3.7 mmol/L (3.5-5.1); Sodium 140 mmol/L (136-145)
--- NOTE | 2025-03-07 21:30 | PC.NURSE ---
Melatonin Patient requesting something to help him rest and states he typically takes melatonin at home. Dr. Shipman contacted; order received for 3 mg melatonin PO once.
[2025-03-07] MEDS: MELATONIN 3 MG TABLET PO (22:15)
[2025-03-08] VITALS (17 sets, daily range): BP systolic 108–155; BP diastolic 72–98; PULSE 50–75; RESP 8–20; TEMP 36.5–37.1; O2SAT 96–99
[2025-03-08] MEDS: diphenhydrAMINE 50 mg/mL SDV 1mL 25 MG IVP ×3 (00:04→21:36)
--- NOTE | 2025-03-08 00:16 | PC.NURSE ---
Benadryl Patient complaining of generalized itching, with a worse itching sensation in both arms. No rash or discoloration noted, patient's respiratory effort unchanged, no complaint of nausea or shortness of breath. Zosyn currently administering, patient states he has no medication allergies. Dr. Shipman notified; zosyn administration discussed. Order received for 25 mg benadryl IVP Q12H for 4 doses.
[2025-03-08] MEDS: VANCOMYCIN ADD-Vantage 1,000 MG in 0.9% NaCl ADD-Vantage 250 ML 250 MG IV (02:34)
--- NOTE | 2025-03-08 05:09 | PM.MISC ---
Miscellaneous Note Purpose of Documentation: Patient transfer from ICU to [facility] floor follow-up acuity care Note: Patient is a young 24-year-old who had been admitted to ICU for DKA patient anion gap had been closed and he had been transitioned and does not need or meet ICU criteria I have been called by the critical care unit nurse because of the need for the ICU patient coming from the ED. For this reason patient is being transferred at to [facility] to make room for another acuity level of care for a patient.
[2025-03-08 05:35] LABS: Hematocrit 35.2 % (37-53); Hemoglobin 12.00 g/dL (11.27-16.99); Mean Corpuscular HGB Conc 34.1 g/dL (30-55); Mean Corpuscular Hemoglobin 31.5 pg (27-33); Mean Corpuscular Volume 92.4 fl (82-101); Nucleated Red Blood Cells % 0 %; Platelet Count 322 10^3/cmm (157-399); Red Blood Count 3.81 10^6/uL (3.85-5.65); White Blood Count 14.62 10^3/uL (3.29-11.43)
[2025-03-08 05:54] LABS: Alanine Aminotransferase 21 U/L (0-41); Albumin Level 3.0 g/dL (3.5-5.2); Alkaline Phosphatase 122 U/L (40-130); Aspartate Amino Transferase 25 U/L (0-40); Blood Urea Nitrogen 10 mg/dL (6-20); Calcium 8.1 mg/dL (8.5-10.5); Carbon Dioxide 23 mmol/L (22-29); Chloride 105 mmol/L (98-107); Creatinine Clr Calc Pharmacy 107.7689; Globulin 1.9 g/dL (1.3-4.6); Glucose 67 mg/dL (65-115); Magnesium 2.0 mg/dL (1.7-2.3); Osmolality Calculated 289 mOsm/kg (285-295); Sodium 141 mmol/L (136-145); Total Protein 4.9 g/dL (6.6-8.7)
[2025-03-08 05:57] LABS: Anion Gap 16.4 (5-19); Potassium 3.4 mmol/L (3.5-5.1)
--- NOTE | 2025-03-08 06:00 | PC.NURSE ---
Transfer Patient transferred to [place] [id number] via wheelchair. All vital signs stable upon leaving ICU. Call light within reach and [place] charge nurse aware of patient arrival.
[2025-03-08] MEDS: piperacillin-tazobactam 3.375 GM in sodium chloride 0.9% (plus) 50 ML IV ×3 (06:13→21:40)
--- NOTE | 2025-03-08 08:53 | CTR_ITS ---
PROCEDURE INFORMATION: Exam: CT Chest With Contrast; Diagnostic Exam date and time: 03/08/2025 9:41 AM Age: 24 years old Clinical indication: Other: Leukocytosis; Prior surgery; Surgery date: 6+ months; Surgery type: Appy TECHNIQUE: Imaging protocol: Diagnostic computed tomography of the chest with contrast. Radiation optimization: All CT scans at this facility use at least one of these dose optimization techniques: automated exposure control; mA and/or kV adjustment per patient size (includes targeted exams where dose is matched to clinical indication); or iterative reconstruction. Contrast material: OMNI 350; Contrast volume: 100 ml; Contrast route: INTRAVENOUS (IV); COMPARISON: CR XR chest 1V portable [id number] 03/06/2025 11:56 AM RADIATION DOSE METRICS: Total DLP (mGy-cm): 1079.27 FINDINGS: Lungs: Patchy ground-glass infiltrates in the left lower lobe. Pleural spaces: Small bilateral pleural effusions. Heart: Unremarkable. No cardiomegaly. No pericardial effusion. Esophagus: Mild thickening of the wall of the esophagus. Lymph nodes: Unremarkable. No enlarged lymph nodes. Vasculature: Unremarkable. No aortic aneurysm. Bones/joints: Unremarkable. No acute fracture. Soft tissues: Unremarkable. PROCEDURE INFORMATION: Exam: CT Abdomen And Pelvis With Contrast Exam date and time: 03/08/2025 9:41 AM Age: 24 years old Clinical indication: Other: Leukocytosis; Prior surgery; Surgery date: 6+ months; Surgery type: Appy TECHNIQUE: Imaging protocol: Computed tomography of the abdomen and pelvis with contrast. Radiation optimization: All CT scans at this facility use at least one of these dose optimization techniques: automated exposure control; mA and/or kV adjustment per patient size (includes targeted exams where dose is matched to clinical indication); or iterative reconstruction. Contrast material: OMNI 350; Contrast volume: 100 ml; Contrast route: INTRAVENOUS (IV); COMPARISON: CR XR chest 1V portable [id number] 03/06/2025 11:56 AM RADIATION DOSE METRICS: Total DLP (mGy-cm): 1079.27 FINDINGS: Liver: There is mild periportal edema. No focal hepatic lesion. Gallbladder and biliary ducts: Normal. No calcified stones. No ductal dilation. Pancreas: Normal. No ductal dilation. Spleen: Normal. No splenomegaly. Adrenal glands: Normal. No mass. Kidneys and ureters: Normal. No hydronephrosis. Stomach and bowel: Unremarkable. No obstruction. No mucosal thickening. Appendix: There has been an appendectomy. Intraperitoneal space: There is a small amount of free intraperitoneal fluid present. Vasculature: Unremarkable. No abdominal aortic aneurysm. Lymph nodes: Unremarkable. No enlarged lymph nodes. Urinary bladder: There is mild bladder wall thickening to be correlated with urinalysis to rule out urinary tract infection. Reproductive: Unremarkable as visualized. Bones/joints: Unremarkable. No acute fracture. Soft tissues: Unremarkable. CT/CT chest abdpel w/*[id number] IMPRESSION: 1. Infiltrates in the left lower lobe, likely infectious/inflammatory. 2. Small bilateral pleural effusions. 3. Findings suggestive of esophagitis. IMPRESSION: 1. Bladder wall thickening to be correlated with urinalysis to rule out urinary tract infection. 2. Post appendectomy with no abscess formation. 3. Mild periportal edema that can be seen in cases of hepatitis in the right clinical setting.
[2025-03-08] MEDS: iohexol 350 mg/mL 500 mL Btl (per mL) IV (09:43)
--- NOTE | 2025-03-08 10:55 | P.PN_ITS ---
Subjective 2 Subjective: CT chest and pelvis shows possible infiltrate in lower lung powers. White count still 14,000. Likely pneumonia precipitated DKA. Patient states he did not miss any of his doses as far as he is aware. Vitals/I&O/Wt Last Vital Signs Temp 97.8 F 03/08/25 07:14 Pulse 56 L 03/08/25 07:14 Resp 16 03/08/25 07:14 BP 136/88 03/08/25 07:14 Pulse Ox 98 03/08/25 07:14 O2 Del Method Room Air 03/08/25 07:14 03/07/25 03/08/25 03/08/25 22:59 06:59 14:59 Intake Total 1435 / 3656.283 1322 / 4978.283 2628.438 / 2628.438 Output Total 1000 / 2150 Balance 435 / 3027.526 7418 / 2828.283 2628.438 / 2628.438 Weight last 48 hrs Weight 86.5 kg Weight 79.5 kg Weight 79.379 kg Weight 79.379 kg Physical Exam 2 Narrative: General: AO x3, HEENT: Normocephalic, atraumatic, EOMI, Cardio:RRR, normal S1-S2, Respiratory: cta b/l, no wheezes or ronchi GI: Abdomen soft, nontender, non distended, bowel sounds + Extremities: no edema, Urinary Catheter Management: Inman: Cath Placed During This Visit: yes, but has since been removed by the nurse Reason for Continuing Indwelling Catheter: Decision to DC Catheter Urinary Catheter Date of Insertion: 03/06/25 Date Urinary Catheter Removed: 03/06/25 Time Urinary Catheter Discontinued: 22:00 Data 03/08/25 04:55 03/08/25 04:55 Micro: Microbiology 03/06/25 14:25 Blood Culture - Preliminary Blood NEGATIVE TO DATE 03/06/25 14:27 Blood Culture - Preliminary Blood NEGATIVE TO DATE 03/06/25 14:30 Urine Culture - Preliminary Urine Catheterized A&P Assessment and plan (1) Diabetic ketoacidosis: (2) Diabetes type 1: (3) WILLIAM (acute kidney injury): (4) Dehydration: (5) Sinus tachycardia: (6) Tachypnea: (7) High anion gap metabolic acidosis: (8) Severe dehydration: (9) Hyperkalemia: (10) GERD (gastroesophageal reflux disease): (11) Leukocytosis: (12) Bandemia: (13) Metabolic encephalopathy: Plan #Diabetic ketoacidosis #Type 1 diabetes #Severe dehydration #Anion gap metabolic acidosis #Acute kidney injury #Sinus tachycardia #GERD #Leukocytosis with bandemia #Mild hyperkalemia #Hemoconcentrated #Metabolic encephalopathy ? Patient on Lantus 20 at home with sliding scale. On Protonix and sucralfate at home that was started at previous admission secondary to GERD. ? Patient does have bandemia with left shift, leukocytosis 28,000 most likely stress response leukemoid reaction. Watch off of antibiotics at this time. ? Check blood cultures, ? Patient mildly hyperkalemic 5.5 which is normal in DKA setting. Whole body potassium lower than that. No intervention needed at this time ? Continue on IV fluids normal saline 200 cc/h ? Patient received 4 L normal saline bolus in ER ? Bicarb drip to be started at 100 cc/h ? Continue on insulin drip. ? Check BMP every 4 hours ? Check magnesium phosphorus ? Add dextrose to fluids once blood sugar lower than 250. ? Anion gap high secondary to diabetic ketoacidosis, ketones positive ? Patient is tachypneic with sinus tachycardia this should resolve as DKA resolves. No need of intubation at this time. He is able to protect his airway. Tachypnea secondary to compensation from acidosis. ? EKG without any acute ischemic changes. ? Chest x-ray appears to be within normal limits, I interpreted. ? WILLIAM most likely from prerenal cause secondary to severe dehydration. Creatinine 2.0 today. I expect this to improve with IV fluids. - Patient unable to provide history. Unsure at this time if he missed his insulin or what the cause of DKA may be. He was recently given a prescription at discharge 9 days ago from this hospital. He cannot provide any history. We will check blood cultures urine culture sputum culture Gram stain placed on broad-spectrum antibiotics vancomycin and Zosyn at this time. ? Check urine drug screen. ? Place Inman catheter. Continue soft restraints till patient more cooperative ? Able to protect airway at this time ? Order 4 mg of morphine for pain ? Will order 2 more amps of bicarb. - Discussed with ER doctor and patient's nurse in the ER. Full code DVT prophylaxis: Lovenox 40 daily 03/07/2025 Switch fluids to D5 half-normal saline. Anion gap is 24. Continue insulin drip per protocol. Continue bicarb drip till bicarb is above 20 and then stop. Discussed with nursing staff. Continue to replete phosphorus and magnesium. Patient unable to give me a history. We are unsure what precipitated the DKA. He states that he has been taking his medications as far as he is aware. Blood cultures are pending. Leukocytosis 20,000. Check CT chest abdomen pelvis. Blood cultures pending today. Urine culture, sputum culture Gram stain pending. 03/07/2025 CT chest, pelvis shows infiltrates in left lower lobe likely infectious/inflammatory. Most likely pneumonia precipitated DKA. Patient has been compliant to medication which she has told me on 2 different occasions. White count 14,000 today. Continue antibiotics at this time. Sputum Gram stain culture is pending. Blood cultures are pending but negative to date. Patient has enough medication at home as well. Does not need any refills. He is slowly improving and feeling better. Continue Lantus 20 at bedtime with insulin sliding scale. Continue consistent carbohydrate diet. PDMP PDMP Reviewed: Not Reviewed Attestations 2 Medical Necessity Statement*: DKA initially however now has pneumonia with leukocytosis persistent. Continue IV antibiotics Diagnoses Diabetic ketoacidosis E11.10 Diabetes type 1 E10.9 WILLIAM (acute kidney injury) N17.9 Dehydration E86.0 Sinus tachycardia R00.0 Tachypnea R06.82 High anion gap metabolic acidosis E87.29 Severe dehydration E86.0 Hyperkalemia E87.5 GERD (gastroesophageal reflux disease) K21.9 Leukocytosis D72.829 Bandemia D72.825 Metabolic encephalopathy G93.41
[2025-03-08] MEDS: insulin glargine 100 units/1 mL 20 UNIT SUBCUT (21:36)
[2025-03-08] MEDS: MELATONIN 3 MG TABLET 6 MG PO (23:33)
[2025-03-09 03:57] VITALS: BP 148/98; PULSE 58; RESP 16; TEMP 36.7; O2SAT 97
[2025-03-09] MEDS: piperacillin-tazobactam 3.375 GM in sodium chloride 0.9% (plus) 50 ML IV (05:22)
[2025-03-09 06:17] LABS: Hematocrit 35.7 % (37-53); Hemoglobin 12.20 g/dL (11.27-16.99); Mean Corpuscular HGB Conc 34.2 g/dL (30-55); Mean Corpuscular Hemoglobin 31.2 pg (27-33); Mean Corpuscular Volume 91.3 fl (82-101); Nucleated Red Blood Cells % 0 %; Platelet Count 273 10^3/cmm (157-399); Red Blood Count 3.91 10^6/uL (3.85-5.65); White Blood Count 9.69 10^3/uL (3.29-11.43)
[2025-03-09 06:36] LABS: Anion Gap 17.4 (5-19); Blood Urea Nitrogen 12 mg/dL (6-20); Calcium 8.4 mg/dL (8.5-10.5); Carbon Dioxide 21 mmol/L (22-29); Chloride 103 mmol/L (98-107); Creatinine Clr Calc Pharmacy 106.3814; Glucose 143 mg/dL (65-115); Magnesium 1.9 mg/dL (1.7-2.3); Osmolality Calculated 288 mOsm/kg (285-295); Potassium 3.4 mmol/L (3.5-5.1); Sodium 138 mmol/L (136-145)
[2025-03-09 07:37] VITALS: BP 158/110; PULSE 51; RESP 17; TEMP 36.7; O2SAT 94
[2025-03-09] MEDS: pantoprazole 40 mg SDV IVP (08:51)
--- NOTE | 2025-03-09 08:55 | PM.DCS ---
Discharge Providers Date of Admission: 03/06/25 12:21 Date of Discharge: March 09, 2025 Attending Provider at Admission: Karlee Lopez MD Attending Provider at Discharge: Carlos Granados Primary Care Provider: Katherine Ulloa NP Diagnoses at Discharge Discharge Diagnosis (1) Diabetic ketoacidosis: (2) Diabetes type 1: (3) WILLIAM (acute kidney injury): (4) Dehydration: (5) Sinus tachycardia: (6) Tachypnea: (7) High anion gap metabolic acidosis: (8) Severe dehydration: (9) Hyperkalemia: (10) GERD (gastroesophageal reflux disease): (11) Leukocytosis: (12) Bandemia: (13) Metabolic encephalopathy: Reason for Visit Reason for Visit: hyperglycemia Hospital Course Hospital Course 24-year-old gentleman with history of DM1, with prior admission for DKA discharged to the end of February, returns to hospital with acute encephalopathy, nausea vomiting, malaise, found in DKA again with metabolic acidosis, lactic acidosis, WILLIAM, started on insulin drip, IV fluid hydration. He previously denies substance use, although there was question of appearance of possible track patel on arms. U tox was obtained and was negative. Blood cultures obtained. So far negative. He states he used to use kratom, but has not been any longer since moving here, otherwise smokes marijuana which he states did get laced in the past with fentanyl and PCP. He now gets it at a dispensary only. Denies any other substance use. With leukocytosis on presentation, further assessment was made for possible underlying infection with finding of faint left lung infiltrate with possible pneumonia he has been treated with Zosyn and vancomycin. Also noted urinary bladder wall thickening, although UA not suggestive of UTI. His encephalopathy and DKA resolved. WILLIAM resolved. He is tolerating oral intake. Insulin Lantus dose is increased to 24 units at discharge and sliding scale is changed to moderate. He knows to monitor for any signs of hypoglycemia and further adjust long-acting insulin based on blood glucose. He states he maintains consistent carbohydrate diet at home. Discussed also referral for endocrinology with him but he states he prefers to follow-up in [place] and will be calling for an appointment there. He is asked to continue monitoring blood glucose and follow-up with prime provider as well for continued optimization of control. Physical Exam Const: COMMON NORMALS: patient oriented x3 and alert GENERAL APPEARANCE: cooperative ORIENTATION/CONSCIOUSNESS: Yes awake HENMT: COMMON NORMALS: oropharynx normal Neck/C-Spine: COMMON NORMALS: no JVD Resp: COMMON NORMALS: normal respiratory effort and clear to auscultation bilaterally AUSCULTATION: clear to auscultation bilaterally Cardio: COMMON NORMALS: no JVD, regular rhythm, S1 normal heart sound present, S2 normal heart sound present and No murmurs present (Cardio) RHYTHM: regular rhythm HEART SOUNDS: S1 normal heart sound present and S2 normal heart sound present GI: COMMON NORMALS: Normal to inspection, nondistended, normoactive bowel sounds present, Soft to palpation and non-tender PALPATION: Yes Soft to palpation Extremity: COMMON NORMALS: no joint enlargement and no pedal edema Neuro: COMMON NORMALS: patient oriented x3 and moves all extremities SENSORIUM/ORIENTATION: Yes alert Skin: COMMON NORMALS: no rashes or lesions noted GENERAL SKIN EXAM: no rashes or lesions noted Urinary Catheter Management: Inman: Cath Placed During This Visit: yes, but has since been removed by the nurse Reason for Continuing Indwelling Catheter: Decision to DC Catheter Urinary Catheter Date of Insertion: 03/06/25 Date Urinary Catheter Removed: 03/06/25 Time Urinary Catheter Discontinued: 22:00 Discharge Data Studies Completed and Pending Completed Studies During Hospitalization Category Date Time Status CT chest abdomen pelvis [CT chest abdpel w/*[id number] Cat Scan 03/08/25 08:53 Completed ] Routine XR chest 1V portable [id number] Stat Exams 03/06/25 11:42 Completed Pending at discharge Category Date Time Status Blood Culture Stat Lab 03/06/25 14:25 Results Sputum Culture and Gram Stain Stat Lab 03/06/25 13:23 Uncollected Vancomycin Trough Timed Lab 03/10/25 13:00 Ordered Radiology Impressions Chest X-Ray 03/06/25 11:42 IMPRESSION: No acute findings. Chest/Abdomen/Pelvis CT 03/08/25 08:53 IMPRESSION: 1. Infiltrates in the left lower lobe, likely infectious/inflammatory. 2. Small bilateral pleural effusions. 3. Findings suggestive of esophagitis. IMPRESSION: 1. Bladder wall thickening to be correlated with urinalysis to rule out urinary tract infection. 2. Post appendectomy with no abscess formation. 3. Mild periportal edema that can be seen in cases of hepatitis in the right clinical setting. Laboratory Results WBC 9.69 10^3/uL (3.29-11.43) 03/09/25 04:54 RBC 3.91 10^6/uL (3.85-5.65) 03/09/25 04:54 Hgb 12.20 g/dL (11.27-16.99) 03/09/25 04:54 Hct 35.7 % (37-53) L 03/09/25 04:54 MCV 91.3 fl (82-101) 03/09/25 04:54 MCH 31.2 pg (27-33) 03/09/25 04:54 MCHC 34.2 g/dL (30-55) 03/09/25 04:54 RDW 13.2 % (12.1-15.1) 03/09/25 04:54 Plt Count 273 10^3/cmm (157-399) 03/09/25 04:54 MPV 9.3 fL (7.4-10.4) 03/09/25 04:54 Neut % (Auto) 60.9 % 03/09/25 04:54 Lymph % (Auto) 32.9 % 03/09/25 04:54 [place] % (Auto) 5.1 % 03/09/25 04:54 Eos % (Auto) 0.3 % 03/09/25 04:54 Baso % (Auto) 0.3 % 03/09/25 04:54 Neut # (Auto) 5.90 10^3/uL (1.8-7.7) 03/09/25 04:54 Lymph # (Auto) 3.2 10^3/uL (0.8-4.8) 03/09/25 04:54 [place] # (Auto) 0.5 10^3/uL (0.2-0.9) 03/09/25 04:54 Eos # (Auto) 0.0 10^3/uL (0.0-0.8) 03/09/25 04:54 Baso # (Auto) 0.0 10^3/uL (0.0-0.1) 03/09/25 04:54 Nucleated RBC % (auto) 0 % 03/09/25 04:54 Total Counted 100 (0-100) 03/06/25 11:30 Atypical Lymphs % 0.0 % (0-5) 03/06/25 11:30 Absolute Neutrophils 19.5 10^3/cmm (1.4-6.5) H 03/06/25 11:30 Segmented Neutrophils 60 % 03/06/25 11:30 Band Neutrophils 8.0 % 03/06/25 11:30 Absolute Lymphocytes 7.2 10^3/cmm (1.2-3.4) H 03/06/25 11:30 Lymphocytes (Manual) 25 % 03/06/25 11:30 Monocytes (Manual) 4.0 % 03/06/25 11:30 Absolute Monocytes 1.1 10^3/cmm (0.1-0.6) H 03/06/25 11:30 Eosinophils (Manual) 1 % 03/06/25 11:30 Absolute Eosinophils 0.3 10^3/cmm (0.0-0.7) 03/06/25 11:30 Basophils (Manual) 0.0 % 03/06/25 11:30 Absolute Basophils 0.0 10^3/cmm (0.0-0.2) 03/06/25 11:30 Metamyelocytes 1.0 % 03/06/25 11:30 Myelocytes 1.0 % 03/06/25 11:30 Nucleated RBCs # 0.0 /100WBC 03/09/25 04:54 Platelet Estimate Increased (Normal) 03/06/25 11:30 Specimen Type Arterial 03/07/25 04:19 Sample Site Brachial, right 03/07/25 04:19 ABG pH 7.51 (7.35-7.45) H 03/07/25 04:19 ABG pCO2 29.4 mmHg (35-45) L 03/07/25 04:19 ABG pO2 125.0 mmHg (80.0-100.0) H 03/07/25 04:19 ABG PO2/FiO2 Ratio 595 03/07/25 04:19 ABG HCO3 23.4 mmol/L (22-26) 03/07/25 04:19 ABG O2 Saturation 97.9 03/07/25 04:19 ABG Base Excess 1.3 mmol/L (-2.0-2.0) 03/07/25 04:19 Gerardo Test N/a 03/07/25 04:19 A-a O2 Gradient 5.0 mmHg (5-10) 03/07/25 04:19 Hematocrit 41.2 % (42-52) L 03/07/25 04:19 Hgb O2 Saturation 96.2 % (95-100) 03/07/25 04:19 Carboxyhemoglobin 0.9 %THgb (0.4-20.1) 03/07/25 04:19 Methemoglobin 0.9 % (0.4-1.5) 03/07/25 04:19 Total Hemoglobin 13.5 g/dL (14-18) L 03/07/25 04:19 Sodium 150.0 mmol/L (131-143) H 03/07/25 04:19 Potassium 3.4 mmol/L (3.5-5.0) L 03/07/25 04:19 Glucose 161.0 mg/dL (70-115) H 03/07/25 04:19 Ionized Calcium 1.1 mmol/L (1.1-1.4) 03/07/25 04:19 O2 Delivery Device None 03/07/25 04:19 FiO2 21.0 % 03/07/25 04:19 Director Cost ID Mak 03/07/25 04:19 Sodium 138 mmol/L (136-145) 03/09/25 04:54 Potassium 3.4 mmol/L (3.5-5.1) L 03/09/25 04:54 Chloride 103 mmol/L (98-107) 03/09/25 04:54 Carbon Dioxide 21 mmol/L (22-29) L 03/09/25 04:54 Anion Gap 17.4 (5-19) 03/09/25 04:54 BUN 12 mg/dL (6-20) 03/09/25 04:54 Creatinine 1.1 mg/dL (0.7-1.2) 03/09/25 04:54 GFR Calculation 81.6 mL/min (90-130) L 03/09/25 04:54 Glucose 143 mg/dL (65-115) H 03/09/25 04:54 POC Glucose 256 mg/dL (70-110) H 03/09/25 06:10 Calculated Osmolality 288 mOsm/kg (285-295) 03/09/25 04:54 Lactic Acid 4.6 mmol/L (0.5-2.2) H* 03/06/25 11:30 Lactic Acid (Sepsis) 5.6 mmol/L (0.5-2.2) H* 03/06/25 15:20 Lactate 1.4 mmol/L (0.5-2.2) 03/06/25 23:56 Calcium 8.4 mg/dL (8.5-10.5) L 03/09/25 04:54 Phosphorus 1.7 mg/dL (2.5-4.5) L D 03/07/25 04:37 Magnesium 1.9 mg/dL (1.7-2.3) 03/09/25 04:54 Total Bilirubin 0.4 mg/dL (0.15-1.2) 03/08/25 04:55 AST 25 U/L (0-40) 03/08/25 04:55 ALT 21 U/L (0-41) 03/08/25 04:55 Alkaline Phosphatase 122 U/L (40-130) 03/08/25 04:55 Total Protein 4.9 g/dL (6.6-8.7) L 03/08/25 04:55 Albumin 3.0 g/dL (3.5-5.2) L 03/08/25 04:55 Globulin 1.9 g/dL (1.3-4.6) 03/08/25 04:55 Urine Color Yellow (Yellow) 03/06/25 14:30 Urine Appearance Cloudy (CLEAR) A 03/06/25 14:30 Urine pH 5.0 (5-7) 03/06/25 14:30 Ur Specific [place] 1.021 (1.005-1.030) 03/06/25 14:30 Urine Protein Trace (Negative) A 03/06/25 14:30 Urine Glucose (UA) 3+ (Normal) H 03/06/25 14:30 Urine Ketones 4+ (Negative) 03/06/25 14:30 Urine Blood Trace (Negative) A 03/06/25 14:30 Urine Nitrate Negative (Negative) 03/06/25 14:30 Urine Bilirubin Negative (Negative) 03/06/25 14:30 Urine Urobilinogen 0.2 mg/dL (Negative) 03/06/25 14:30 Ur Leukocyte Esterase Negative (Negative) 03/06/25 14:30 Urine RBC 0-2 /hpf (0-2) 03/06/25 14:30 Urine WBC 0-5 /hpf (0-5) 03/06/25 14:30 Ur Squamous Epith Cells 0-5 /hpf (0-5) 03/06/25 14:30 Amorphous Sediment Not Reportable 03/06/25 14:30 Urine Bacteria None seen /hpf (NONE) 03/06/25 14:30 Hyaline Casts 9.51 /lpf 03/06/25 14:30 Vancomycin Trough 11.6 ug/mL (10-15) 03/08/25 12:55 Urine Opiates Screen Negative ng/mL (Negative) 03/06/25 14:30 Ur Barbiturates Screen Negative ng/mL (Negative) 03/06/25 14:30 Ur Phencyclidine Scrn Negative ng/mL (Negative) 03/06/25 14:30 Ur Amphetamines Screen Negative ng/mL (Negative) 03/06/25 14:30 U Benzodiazepines Scrn Negative ng/mL (Negative) 03/06/25 14:30 Urine Cocaine Screen Negative ng/mL (Negative) 03/06/25 14:30 U Marijuana (THC) Screen Negative ng/mL (Negative) 03/06/25 14:30 Serum Ketones Positive (Negative) H 03/06/25 11:30 Adenovirus (PCR) Not detected (NOT DETECT) 03/07/25 02:20 C. pneumoniae DNA (PCR) Not detected (NOT DETECT) 03/07/25 02:20 Coronavirus 229E (PCR) Not detected (NOT DETECT) 03/07/25 02:20 Human Metapneumovir PCR Not detected (NOT DETECT) 03/07/25 02:20 Influenza A (H1) PCR Not detected (NOT DETECT) 03/07/25 02:20 Influ A (H1/09) PCR Not detected (NOT DETECT) 03/07/25 02:20 Influenza A (H3) PCR Not detected (NOT DETECT) 03/07/25 02:20 Influenza Type A (PCR) Not detected (NOT DETECT) 03/07/25 02:20 Influenza Type B (PCR) Not detected (NOT DETECT) 03/07/25 02:20 M. pneumoniae (PCR) Not detected (NOT DETECT) 03/07/25 02:20 Parainfluenza 1 (PCR) Not detected (NOT DETECT) 03/07/25 02:20 Parainfluenza 2 (PCR) Not detected (NOT DETECT) 03/07/25 02:20 Parainfluenza 3 (PCR) Not detected (NOT DETECT) 03/07/25 02:20 Parainfluenza 4 (PCR) Not detected (NOT DETECT) 03/07/25 02:20 RSV Type A (PCR) Not detected (NOT DETECT) 03/07/25 02:20 RSV Type B (PCR) Not detected (NOT DETECT) 03/07/25 02:20 Entero/Rhino (PCR) Not detected (NOT DETECT) 03/07/25 02:20 SARS-CoV-2 (PCR) Not detected (NOT DETECT) 03/07/25 02:20 Vitals Last Vital Signs Temp 98.0 F 03/09/25 07:37 Pulse 51 L 03/09/25 07:37 Resp 17 03/09/25 07:37 BP 158/110 03/09/25 07:37 Pulse Ox 94 03/09/25 07:37 O2 Del Method Room Air 03/09/25 07:37 Discharge Plan Discharge Patient Disposition: Home Condition: Stable Prescriptions: New amoxicillin-pot clavulanate 875-125 mg tablet 1 tab PO BID Qty: 6 0RF Continued sucralfate 1 gram Tablet 1 g PO AC&BEDTIME 30 Days Qty: 90 0RF pantoprazole [Protonix] 40 mg tablet,delayed release (DR/EC) 40 mg PO QAM Qty: 30 0RF (DME) blood-glucose meter [Blood Glucose Monitoring] Kit See Rx Instructions .ROUTE .MEDSUPPLY Qty: 1 0RF Rx Instructions: As directed (DME) lancets Misc See Rx Instructions .ROUTE .MEDSUPPLY Qty: 100 0RF Rx Instructions: As directed insulin lispro [Humalog KwikPen Insulin] 100 unit/mL insulin pen See Protocol SUBCUT QPM Qty: 15 0RF Protocol: Insulin Corrective High-Dose Regimen Condition: Fingerstick Blood Glucose Dose/Route: Insulin Units Condition: 141-180 mg/dl Dose/Route: 2 units/SQ Condition: 181-220 mg/dl Dose/Route: 4 units/SQ Condition: 221-260 mg/dl Dose/Route: 4 units/SQ Condition: 261-300 mg/dl Dose/Route: 8 units/SQ Condition: 301-350 mg/dl Dose/Route: 10 units/SQ Condition: 351-400 mg/dl Dose/Route: 12 units/SQ Condition: greater than 400 mg/dl Dose/Route: 14 units/SQ Rx Instructions: Glucose: 141-180 - 4 units 181-220 - 6 221-260 - 8 261-300 - 10 301-350 - 12 351-400 - 14 >400 - 16 units Changed insulin glargine [Lantus Solostar U-100 Insulin] 100 unit/mL (3 mL) insulin pen 24 unit SUBCUT QPM Qty: 15 0RF Rx Instructions: 20 units subcutaneously; Discharge Orders: Discharge Order (Routine); Ordered 03/09/25 Ordered By: Carlos Granados Referrals: Katherine Ulloa NP [Primary Care Provider, [facility]] - 4-7 days Discharge Diet: Diabetic Patient Instructions: Amoxicillin/Clavulanate Potassium (By mouth), Diabetic Ketoacidosis (GEN), Opioid Safety, Patient Portal & Alexis Instructions Activity Restrictions/Additional Instructions: Continue short acting sliding scale before meals: Glucose: 141-180 - 4 units 181-220 - 6 221-260 - 8 261-300 - 10 301-350 - 12 351-400 - 14 >400 - 16 units Continue long-acting insulin with Lantus as discussed 24 units at this time. Continue to adjust Lantus depending on your blood glucose, if blood glucose remains elevated beyond 100-150, increase Lantus by 1-2 units per 24 hours. Indication encounter low blood sugars as discussed, decrease Lantus by 4-5 units and continue to reassess and adjust. Follow-up with endocrinology. Seek medical attention in case of feeling unwell or any symptoms that may suggest that DKA may be coming on or if you are having difficulties managing the blood sugars. Discharge Attestations Time Spent in Discharge Care*: greater than 30 min Quality Metrics Clinical Quality Measures [ No reported AMI, CVA or VTE this stay] Coding Level of Care Code 76640 Total time (in minutes) for Discharge: 45 Diagnoses Diabetic ketoacidosis E11.10 Diabetes type 1 E10.9 WILLIAM (acute kidney injury) N17.9 Dehydration E86.0 Sinus tachycardia R00.0 Tachypnea R06.82 High anion gap metabolic acidosis E87.29 Severe dehydration E86.0 Hyperkalemia E87.5 GERD (gastroesophageal reflux disease) K21.9 Leukocytosis D72.829 Bandemia D72.825 Metabolic encephalopathy G93.41
== END 2025-03-09 10:43 | disposition home or self-care (01) | DRG 637 ==
LOC: ER 11:31 → ICU 12:21 → MEDSURG 03-08 05:55
PROVIDERS: Internal Medicine; Admitting Provider Internal Medicine; Emergency Provider Family Medicine; Visit Provider Internal Medicine
DX: E10.10 Type 1 diabetes mellitus with ketoacidosis without coma (principal); G93.41 Metabolic encephalopathy; J18.9 Pneumonia, unspecified organism; N17.9 Acute kidney failure, unspecified; Z79.4 Long term (current) use of insulin; E86.0 Dehydration; K21.9 Gastro-esophageal reflux disease without esophagitis; E87.5 Hyperkalemia; D72.825 Bandemia; F17.200 Nicotine dependence, unspecified, uncomplicated; R06.82 Tachypnea, not elsewhere classified
CPT/HCPCS: 36415; 36416; 36600; 51702; 51798; 71045; 71260; 74177; 80048; 80051; 80053; 80202; 80306; 81001; 82009; 82330; 82805; 82962; 83605; 83735; 84100; 85007; 85025; 87040; 87086; 87486; 87581; 87633; 93005; 93010; 96365; 96366; 96367; 96372; 96375; 96376; 99285; A4570; J1200; J1650; J1815; J2060; J2270; J2405; J2470; J2543; J3370; J3372; J3480; J7030; J7050; J7070; J7799; J9999